=== PATIENT | female | born 1965 | race Caucasian/White ===

== ENCOUNTER 2016-04-29 11:14 | Inpatient (IN) | payer SELFPAY ==
[~2016-04-29] VITALS: Ht 154.9 cm; Wt 48.7 kg
[2016-04-29] VITALS (8 sets, daily range): BP systolic 134–154; BP diastolic 67–83; PULSE 82–105; RESP 12–20; TEMP 97.2–98.9; O2SAT 95–100
[~2016-04-29 11:14] MED LIST: LORA-392 PO
--- NOTE | 2016-04-29 11:52 | PD ---
HPI Chief Complaint: OD/ Ingestion Time Seen by Provider: 11:51 Travel History International Travel<30 days: No Contact w/Intl Traveler<30days: No Traveled to known affect area: No History of Present Illness HPI 50-year-old female coming in via ambulance with a Pulido act for reported overdose. There is reports the patient states she took 12 acetaminophen wanting not to wake up. She comes from a house that was extremely dirty with multiple stray cats and feces throughout, and all the food in the refrigerator had maggots present. Patient is appropriate and arousable, and complaining of left upper back and chronic back pain, but denies fever, nausea, vomiting, or diarrhea. When I asked the patient what she took as an overdose she states Benadryl and baby aspirin. Vital signs are stable upon arrival. Patient is known to be allergic to Bactrim, sulfa, and trimethoprim. PFSH Past Medical History Anxiety: Yes Depression: Yes Gastrointestinal Disorders: Yes (COLONOSCOPIES: LAST ONE 2006, POLYPECTOMY) Hiatal Hernia: Yes Herniated Disk: Yes (NECK) Kidney Stones: Yes Respiratory: Yes (BRONCHITIS) Pneumonia: Yes Ulcer: Yes (GASTRIC) ?: Unknown Menopausal: Yes : 1 Miscarriage: 1 Past Surgical History Other Surgery: Yes (BREAST AUGMENTATION) Social History Alcohol Use: No Tobacco Use: Yes (04/26 PPD) Substance Use: No Allergies-Medications (Allergen,Severity, Reaction): Coded Allergies: Sulfa (Verified Allergy, Severe, HIGH FEVER AND RASH, 04/29/16) Bactrim (Verified Allergy, Intermediate, RASH/FEVER, 04/29/16) Trimethoprim (Verified Allergy, Unknown, 04/29/16) Reported Meds & Prescriptions Reported Meds & Active Scripts Active Reported Ativan (Lorazepam) 0.5 Mg Tab 0.5 Mg PO Q12HR PRN Review of Systems ROS Limitations: Clinical Condition General / Constitutional: No: Fever Eyes: No: Visual changes HENT: No: Headaches Cardiovascular: No: Chest Pain or Discomfort Respiratory: No: Shortness of Breath Gastrointestinal: No: Abdominal Pain Genitourinary: No: Dysuria Musculoskeletal: No: Pain Skin: No Rash Neurologic: No: Weakness Psychiatric: No: Depression Endocrine: No: Polydipsia Hematologic/Lymphatic: No: Easy Bruising Physical Exam Exam Limitations: Clinical Condition Narrative GENERAL: Patient is oriented and currently appropriate. She appears disheveled and somewhat cachectic. She smells of Cat Urine. SKIN: Warm and dry. No obvious signs of trauma. HEAD: Atraumatic. Normocephalic. EYES: Pupils equal and round. No scleral icterus. No injection or drainage. ENT: No nasal bleeding or discharge. Mucous membranes pink and dry. Pharynx appears normal. NECK: Trachea midline. Neck is supple. CARDIOVASCULAR: Tachycardic rate and normal rhythm. RESPIRATORY: No accessory muscle use. Clear to auscultation. Patient has noticeable wet cough. Breath sounds equal bilaterally. GASTROINTESTINAL: Abdomen soft, non-tender, nondistended. Hepatic and splenic margins not palpable. MUSCULOSKELETAL: Extremities without clubbing, cyanosis, or edema. No obvious deformities. NEUROLOGICAL: Awake and alert. No obvious cranial nerve deficits. Motor grossly within normal limits. Five out of 5 muscle strength in the arms and legs. Normal speech. PSYCHIATRIC: Appropriate mood and affect; insight and judgment normal. Data Data Last Documented VS Vital Signs Date Time Temp Pulse Resp B/P Pulse Ox O2 Delivery O2 Flow Rate FiO2 04/29/16 14:33 95 14 134/79 97 Room Air 04/29/16 11:26 97.2 Orders Electrocardiogram (04/29/16 11:35) Complete Blood Count With Diff (04/29/16 11:35) Comprehensive Metabolic Panel (04/29/16 11:35) Drug Screen, Random Urine (04/29/16 11:35) Alcohol (Ethanol) (04/29/16 11:35) Tylenol (Acetaminophen) (04/29/16 11:35) Psych Screen (04/29/16 11:35) Oximetry (04/29/16 12:15) Ecg Monitoring (04/29/16 12:15) Cath For Specimen (04/29/16 12:15) Salicylates (Aspirin) (04/29/16 12:15) Sodium Chlor 0.9% 1000 Ml Inj (Ns 1000 M (04/29/16 12:17) Osmolality,Serum (04/29/16 12:18) Osmolality, Urine (04/29/16 12:18) Urinalysis - C+S If Indicated (04/29/16 12:18) Ondansetron Inj (Zofran Inj) (04/29/16 12:30) Lactic Acid Sepsis Protocol (04/29/16 12:51) Blood Culture (04/29/16 12:51) Chest, Single Ap (04/29/16 12:51) Piperacil-Tazo 4.5 Gm Premix (Zosyn 4.5 (04/29/16 12:51) Azithromycin Inj (Zithromax Inj) (04/29/16 13:15) Admit Order (Ed Use Only) (04/29/16 14:37) Labs Laboratory Tests Test 04/29/16 04/29/16 04/29/16 04/29/16 11:40 12:15 12:30 12:55 White Blood Count 20.4 TH/MM3 Red Blood Count 4.31 MIL/MM3 Hemoglobin 13.0 GM/DL Hematocrit 39.3 % Mean Corpuscular Volume 91.3 FL Mean Corpuscular Hemoglobin 30.2 PG Mean Corpuscular Hemoglobin 33.1 % Concent Red Cell Distribution Width 13.8 % Platelet Count 269 TH/MM3 Mean Platelet Volume 8.5 FL Neutrophils (%) (Auto) 90.3 % Lymphocytes (%) (Auto) 5.2 % Monocytes (%) (Auto) 4.1 % Eosinophils (%) (Auto) 0.0 % Basophils (%) (Auto) 0.4 % Neutrophils # (Auto) 18.4 TH/MM3 Lymphocytes # (Auto) 1.1 TH/MM3 Monocytes # (Auto) 0.8 TH/MM3 Eosinophils # (Auto) 0.0 TH/MM3 Basophils # (Auto) 0.1 TH/MM3 CBC Comment DIFF FINAL Differential Comment Sodium Level 143 MEQ/L Potassium Level 4.1 MEQ/L Chloride Level 108 MEQ/L Carbon Dioxide Level 27.9 MEQ/L Anion Gap 7 MEQ/L Blood Urea Nitrogen 7 MG/DL Creatinine 0.44 MG/DL Estimat Glomerular Filtration 152 ML/MIN Rate Random Glucose 93 MG/DL Calcium Level 8.5 MG/DL Total Bilirubin 0.5 MG/DL Aspartate Amino Transf 29 U/L (AST/SGOT) Alanine Aminotransferase 21 U/L (ALT/SGPT) Alkaline Phosphatase 115 U/L Total Protein 7.0 GM/DL Albumin 3.6 GM/DL Acetaminophen Level LESS THAN 2.0 MCG/ML Ethyl Alcohol Level LESS THAN 3 MG/DL Urine Color YELLOW Urine Turbidity HAZY Urine pH 7.5 Urine Specific [place] 1.011 Urine Protein NEG mg/dL Urine Glucose (UA) NEG mg/dL Urine Ketones NEG mg/dL Urine Occult Blood MOD Urine Nitrite NEG Urine Bilirubin NEG Urine Urobilinogen LESS THAN 2.0 MG/DL Urine Leukocyte Esterase MOD Urine RBC 10 /hpf Urine WBC 4 /hpf Urine Squamous Epithelial 7 /hpf Cells Microscopic Urinalysis Comment CATH-CULT NOT IND Urine Osmolality 471 MOSM/KG Urine Opiates Screen NEG Urine Barbiturates Screen NEG Urine Amphetamines Screen NEG Urine Benzodiazepines Screen NEG Urine Cocaine Screen NEG Urine Cannabinoids Screen NEG Serum Osmolality 301 MOSM/KG Lactic Acid Level 0.8 mmol/L MDM Medical Decision Making Medical Screen Exam Complete: Yes Emergency Medical Condition: Yes Differential Diagnosis Decreased mental status. Suicidal ideation. Possible overdose. Possible sepsis. Dehydration. Narrative Course Patient is felt to be medically stable at time of arrival. Labs ordered including CBC, CMP, acetaminophen level, drug screen, alcohol level , and salicylate level. Urinalysis is ordered. Patient is found to have an elevated white count of 20.4 with a right shift. Preliminary drug screen is negative for elevated acetaminophen, or salicylates. Patient is felt to be possibly septic. With her tachycardia and apparent dehydration and white count. Additional labs ordered including what cultures 2 and lactic acid. Chest x-ray is added, as patient has deep wet cough. Patient is given bolus of normal saline 1000 mL IV. Patient is given a dose of Zosyn 4.25 mg IV empirically for possible sepsis. Chest x-ray shows a right middle lobe pneumonia. Patient is given azithromycin 500 mg IV as well. Patient will be admitted for medical stabilization prior to psychiatric evaluation. 1330 hrs. call was placed to the hospitalist for admission. Diagnosis Primary Impression: Pneumonia Qualified Code: J18.1 - Pneumonia of right middle lobe due to infectious organism Additional Impression: Suicidal ideations Admitting Information Admitting Physician Requests: Admit Condition: Stable Ozzy Stein Apr 29, 2016 11:51
[2016-04-29 12:05] LABS: AUTOMATED NEUTROPHIL # 18.4 TH/MM3 (1.8-7.7); BASOPHIL # 0.1 TH/MM3 (0-0.2); BASOPHIL % 0.4 % (0.0-2.0); HEMATOCRIT 39.3 % (35.0-46.0); HEMO FLAGS DIFF FINAL; LYMPH % 5.2 % (9.0-44.0); LYMPHOCYTE # 1.1 TH/MM3 (1.0-4.8); MEAN CELL VOLUME 91.3 FL (80.0-100.0); MEAN CORPUSCULAR HEMOGLOBIN 30.2 PG (27.0-34.0); MEAN CORPUSCULAR HGB CONC 33.1 % (32.0-36.0); MONO % 4.1 % (0.0-8.0); NEUT % 90.3 % (16.0-70.0); PLATELET COUNT 269 TH/MM3 (150-450); RED BLOOD COUNT 4.31 MIL/MM3 (4.00-5.30); RED CELL DISTRIBUTION WIDTH 13.8 % (11.6-17.2); WHITE BLOOD COUNT 20.4 TH/MM3 (4.0-11.0)
[2016-04-29] MEDS ORDERED: SODIUM CHLOR 0.9% 1000 ML INJ 1,000 ML IV SCH (12:17)
[2016-04-29 12:28] LABS: ALKALINE PHOSPHATASE 115 U/L (45-117); TOTAL BILIRUBIN ADULT 0.5 MG/DL (0.2-1.0)
[2016-04-29 12:30] LABS: ACETAMINOPHEN LESS THAN 2.0 MCG/ML (10.0-30.0); ALT (GPT) 21 U/L (10-53); ANION GAP 7 MEQ/L (5-15); AST (GOT) 29 U/L (15-37); BICARBONATE 27.9 MEQ/L (21.0-32.0); BLOOD UREA NITROGEN 7 MG/DL (7-18); CHLORIDE 108 MEQ/L (98-107); GLOMERULAR FILTRATION RATE 152 ML/MIN (>89); SODIUM (NA) 143 MEQ/L (136-145)
[2016-04-29] MEDS ORDERED: ONDANSETRON HCL 4 MG/2 ML VIAL IVP ONE (12:30)
[2016-04-29 12:32] LABS: POTASSIUM 4.1 MEQ/L (3.5-5.1)
[2016-04-29 12:41] LABS: AMPHETAMINE, URINE NEG (NEG); BARBITURATES, URINE NEG (NEG); COCAINE, URINE NEG (NEG)
[2016-04-29] MEDS ORDERED: PIPERACIL-TAZO 4.5 GM PREMIX 100 ML IV STA (12:51)
[2016-04-29] MEDS ORDERED: AZITHROMYCIN INJ 500 MG in SODIUM CHLOR 0.9% 250 ML INJ 250 ML IV ONE (13:15)
--- NOTE | 2016-04-29 13:21 | RADRPT ---
EXAM DATE/TIME: 04/29/2016 13:04 [facility] COMPARISON: No previous studies available for comparison. INDICATIONS : Fever. MEDICAL HISTORY : None. SURGICAL HISTORY : None. ENCOUNTER: Initial ACUITY: 1 day PAIN SCORE: Non-responsive. LOCATION: Bilateral chest FINDINGS: A single view of the chest demonstrates a right infrahilar density. Left lung clear. The cardiomedias tinal contours are unremarkable. Osseous structures are intact. CONCLUSION: Right infrahilar infiltrate. Recommend treatment and followup to resolution. Mike Ponce MD on April 29, 2016 at 13:18 Board Certified Radiologist. This report was verified electronically.
[2016-04-29 13:28] LABS: BLOOD, URINE MOD (NEG); COMMENT (UR) CATH-CULT NOT IND; CULTURE IF INDICATED CATH CULTURE NOT IND; GLUCOSE,URINE NEG (NEG); KETONE, URINE NEG (NEG); NITRITE,URINE NEG (NEG); PH, URINE 7.5 (5.0-8.5); SQUAMOUS EPITHELIAL CELL URINE 7 /hpf (0-5); URINE COLOR YELLOW (YELLW/STRAW)
[2016-04-29] MEDS ORDERED: LORA-392 PO (14:37)
[2016-04-29] MEDS ORDERED: SODIUM CHLORIDE 0.9% FLUSH 5 ML FLUSH FLUSH PRN (19:00)
[2016-04-29] MEDS ORDERED: NALOXONE HCL 0.4 MG/ML AMP IV PRN (19:00)
--- NOTE | 2016-04-29 19:06 | HHI.HP ---
HPI Service [facility] Primary Care Physician Unknown Admission Diagnosis Pneumonia/Dehydration/Pulido Act Diagnoses: Chief Complaint: Drug overdose Travel History International Travel<30 Days: No Contact w/Intl Traveler <30 Da: No Traveled to Known Affected Are: No Sepsis Criteria SIRS Criteria (2 or more): Heart rate over 90, WBC > 18936, < 4000 or > 10% bands Sepsis Criteria (SIRS+source): Infect source susp/known Criteria Outcome: Meets sepsis criteria History of Present Illness This is a 50-year-old female brought in by EMS under a police Pulido act for a reported overdose. Patient states she took 12 acetaminophen wanting not to wake up. She later informed the nursing staff that she took Benadryl and aspirin. To me she claimed she took 6 Ativan and 3 Phenergan. She is not a reliable historian. Urine drug screen is negative pending salicylate level. She has been depressed since her mother several months ago. She comes from a house that was extremely dirty with multiple stray cats and feces throughout, and all the food in the refrigerator had maggots present. Patient is appropriate and complaining of chronic intermittent left upper back and back pain, but denies fever, nausea, vomiting, or diarrhea. When informed about the abnormal chest x-ray showing a possible pneumonia. She reports she has been having dry cough, eye puffiness and warm sensation for the past 2 days. She received IV Zithromax and cefepime in the emergency department. At this time, she does not contract for safety. Pluido act will be continued and a sitter will be requested Review of Systems Constitutional: DENIES: Diaphoretic episodes, Fatigue, Fever, Weight gain, Weight loss, Chills, Dizziness, Change in appetite, Night Sweats Endocrine: DENIES: Heat/cold intolerance, Polydipsia, Polyuria, Polyphagia Eyes: DENIES: Blurred vision, Diplopia, Vision loss, Photosensitivity Ears, nose, mouth, throat: DENIES: Tinnitus, Vertigo, Throat pain, Hoarseness, Epistaxis, Odynophagia Respiratory: COMPLAINS OF: Cough, DENIES: Wheezing, Hemoptysis, Sputum production, Shortness of breath Cardiovascular: DENIES: Chest pain, Palpitations, Syncope, Dyspnea on Exertion , PND, Lower Extremity Edema, Orthopnea, Claudication Gastrointestinal: DENIES: Abdominal pain, Black stools, Bloody stools, Constipation, Diarrhea, Nausea, Vomiting, Difficulty Swallowing, Anorexia Genitourinary: DENIES: Urinary frequency, Urinary incontinence, Urgency, Hematuria, Dysuria, Nocturia, Vaginal discharge Musculoskeletal: COMPLAINS OF: Muscle aches, Stiffness, Back pain, Neck pain Integumentary: DENIES: Rash Neurologic: DENIES: Headache, Localized weakness, Seizures, Tremor, Poor Balance Psychiatric: COMPLAINS OF: Anxiety, Depression, Suicidal Ideation, DENIES: Confusion, Hallucinations, Agitation, Homicidal Ideation, Delusions Past Family Social History Past Medical History Anxiety and depression, chronic neck and back pain with history of herniated disc in the cervical area, bronchitis, pneumonia, gastric ulcer Past Surgical History Breast augmentation and tendon release Reported Medications Ativan. Unable to afford Lexapro Allergies: Coded Allergies: Sulfa (Verified Allergy, Severe, HIGH FEVER AND RASH, 04/29/16) Bactrim (Verified Allergy, Intermediate, RASH/FEVER, 04/29/16) Trimethoprim (Verified Allergy, Unknown, 04/29/16) Family History Melanoma, coronary artery disease Social History Does not drink or use illicit drugs. She smokes half a pack per day Physical Exam Vital Signs Vital Signs Date Time Temp Pulse Resp B/P Pulse Ox O2 Delivery O2 Flow Rate FiO2 04/29/16 18:44 90 20 141/67 95 Room Air 04/29/16 16:35 98.9 105 20 143/83 100 Room Air 04/29/16 15:29 101 16 144/81 97 Room Air 04/29/16 14:33 95 14 134/79 97 Room Air 04/29/16 11:26 97.2 102 12 135/72 96 Physical Exam GENERAL: This is a well-nourished, asthenic, in no apparent distress. SKIN: Bruises bilateral forearms and abrasion left elbow, abrasion mid back HEAD: Atraumatic. Normocephalic. No temporal or scalp tenderness. EYES: Pupils equal round and reactive. Extraocular motions intact. No scleral icterus. No injection or drainage. ENT: Nose without bleeding, purulent drainage or septal hematoma. Throat without erythema, tonsillar hypertrophy or exudate. Uvula midline. Airway patent. NECK: Trachea midline. No JVD or lymphadenopathy. Supple, nontender, no meningeal signs. CARDIOVASCULAR: Regular rate and rhythm without murmurs, gallops, or rubs. RESPIRATORY: Clear to auscultation. Decreased breath sounds right base. No wheezes, rales, or rhonchi. GASTROINTESTINAL: Abdomen soft, non-tender, nondistended. No guarding. MUSCULOSKELETAL: Extremities without clubbing, cyanosis, or edema. No joint tenderness, effusion, or edema noted. No calf tenderness. Negative Homans sign bilaterally. NEUROLOGICAL: Awake and alert. Cranial nerves II through XII intact. Motor and sensory grossly within normal limits. Five out of 5 muscle strength in all muscle groups. Normal speech. Laboratory Laboratory Tests Test 04/29/16 04/29/16 04/29/16 04/29/16 11:40 12:15 12:30 12:55 White Blood Count 20.4 Red Blood Count 4.31 Hemoglobin 13.0 Hematocrit 39.3 Mean Corpuscular Volume 91.3 Mean Corpuscular Hemoglobin 30.2 Mean Corpuscular Hemoglobin 33.1 Concent Red Cell Distribution Width 13.8 Platelet Count 269 Mean Platelet Volume 8.5 Neutrophils (%) (Auto) 90.3 Lymphocytes (%) (Auto) 5.2 Monocytes (%) (Auto) 4.1 Eosinophils (%) (Auto) 0.0 Basophils (%) (Auto) 0.4 Neutrophils # (Auto) 18.4 Lymphocytes # (Auto) 1.1 Monocytes # (Auto) 0.8 Eosinophils # (Auto) 0.0 Basophils # (Auto) 0.1 CBC Comment DIFF FINAL Differential Comment Sodium Level 143 Potassium Level 4.1 Chloride Level 108 Carbon Dioxide Level 27.9 Anion Gap 7 Blood Urea Nitrogen 7 Creatinine 0.44 Estimat Glomerular Filtration 152 Rate Random Glucose 93 Calcium Level 8.5 Total Bilirubin 0.5 Aspartate Amino Transf 29 (AST/SGOT) Alanine Aminotransferase 21 (ALT/SGPT) Alkaline Phosphatase 115 Total Protein 7.0 Albumin 3.6 Acetaminophen Level LESS THAN 2.0 Ethyl Alcohol Level LESS THAN 3 Urine Color YELLOW Urine Turbidity HAZY Urine pH 7.5 Urine Specific [place] 1.011 Urine Protein NEG Urine Glucose (UA) NEG Urine Ketones NEG Urine Occult Blood MOD Urine Nitrite NEG Urine Bilirubin NEG Urine Urobilinogen LESS THAN 2.0 Urine Leukocyte Esterase MOD Urine RBC 10 Urine WBC 4 Urine Squamous Epithelial 7 Cells Microscopic Urinalysis Comment CATH-CULT NOT IND Urine Osmolality 471 Urine Opiates Screen NEG Urine Barbiturates Screen NEG Urine Amphetamines Screen NEG Urine Benzodiazepines Screen NEG Urine Cocaine Screen NEG Urine Cannabinoids Screen NEG Serum Osmolality 301 Lactic Acid Level 0.8 Date/Time Procedure Status Source Growth 04/29/16 12:55 Aerobic Blood Culture Received Blood Peripheral Pending 04/29/16 12:55 Anaerobic Blood Culture Received Blood Peripheral Pending Result Diagram: 04/29/16 1140 04/29/16 1140 Imaging EKG tracing interpreted by me and sinus tachycardia Chest x-ray image interpreted by me with right infrahilar infiltrate Last Impressions Chest X-Ray 04/29/16 1251 Signed Impressions: Service Date/Time: , April 29, 2016 13:04 - CONCLUSION: Right infrahilar infiltrate. Recommend treatment and followup to resolution. Mike Ponce MD Assessment and Plan Problem List: (1) Pneumonia ICD Code: J18.9 Status: Acute (2) Suicidal ideations ICD Code: R45.851 Status: Acute Assessment and Plan This is a 50-year-old female brought in by EMS under a police Pulido act for a reported overdose. Patient states she took 12 acetaminophen wanting not to wake up. She later informed the nursing staff that she took Benadryl and aspirin. To me she claimed she took 6 Ativan and 3 Phenergan. She is not a reliable historian. Urine drug screen is negative pending salicylate level. She has been depressed since her mother several months ago. She comes from a house that was extremely dirty with multiple stray cats and feces throughout, and all the food in the refrigerator had maggots present. Patient is appropriate and complaining of chronic intermittent left upper back and back pain, but denies fever, nausea, vomiting, or diarrhea. When informed about the abnormal chest x-ray showing a possible pneumonia. She reports she has been having dry cough, eye puffiness and warm sensation for the past 2 days. Sepsis secondary to pneumonia. Continue Zithromax and add IV Rocephin. Obtain sputum culture, urinary Legionella and pneumococcal antigen. Follow-up blood cultures. Repeat CBC in the morning Reported drug overdose history of depression. At this time, she does not contract for safety. Pulido act will be continued and a sitter will be requested. Psychiatry consult patient has been requested Chronic neck and back pain with history of herniated disc in the cervical area, heat pads and NSAIDs. Physical therapy evaluation Wound care Case management consult Discussed Condition With Patient Physician Certification 2 Midnight Certification Type: Admission for Inpatient Services Order for Inpatient Services The services are ordered in accordance with Medicare regulations or non- Medicare payer requirements, as applicable. In the case of services not specified as inpatient-only, they are appropriately provided as inpatient services in accordance with the 2-midnight benchmark. Estimated LOS (days): 2 days is the estimated time the patient will need to remain in the hospital, assuming treatment plan goals are met and no additional complications. Post-Hospital Plan: Home Problem Qualifiers (1) Pneumonia: Qualified Code: J18.1 - Pneumonia of right middle lobe due to infectious organism Nicko Denis MD Apr 29, 2016 19:05
[2016-04-29] MEDS ORDERED: ACETAMINOPHEN 325 MG TAB PO PRN ×2 (21:00)
[2016-04-29] MEDS ORDERED: BISACODYL 10 MG SUPP PR PRN (21:00)
[2016-04-29] MEDS ORDERED: LORazepam 0.5 MG TAB PO PRN (21:00)
[2016-04-29] MEDS ORDERED: MAGNESIUM HYDROXIDE SUSP 30 ML CUP PO PRN (21:00)
[2016-04-29] MEDS ORDERED: traMADol HCL 50 MG TAB PO PRN (21:00)
[2016-04-29] MEDS ORDERED: ONDANSETRON HCL 4 MG/2 ML VIAL IVP PRN (21:00)
[2016-04-29] MEDS ORDERED: SENNOSIDES 8.6 MG TAB PO PRN (21:00)
[2016-04-29] MEDS: traMADol HCL 50 MG TAB PO PRN (21:05)
[2016-04-29] MEDS: DOCUSATE SODIUM 100 MG CAP PO SCH (21:05)
[2016-04-29] MEDS: METHOCARBAMOL 500 MG TAB PO SCH (21:06)
[2016-04-29] MEDS: SODIUM CHLOR 0.9% 1000 ML INJ 1,000 ML IV SCH (21:07)
[2016-04-29] MEDS: cefTRIAXone INJ 1,000 MG in SODIUM CHLORIDE 0.9% INJ 100 ML IV SCH (21:07)
[2016-04-29] MEDS: SODIUM CHLORIDE 0.9% FLUSH 5 ML FLUSH FLUSH SCH (21:07)
[2016-04-30] VITALS (7 sets, daily range): BP systolic 120–135; BP diastolic 56–79; PULSE 70–93; RESP 18–21; TEMP 98–99; O2SAT 93–99
[2016-04-30] MEDS: METHOCARBAMOL 500 MG TAB PO SCH ×3 (05:15→21:14)
[2016-04-30] MEDS: traMADol HCL 50 MG TAB PO PRN ×3 (05:16→18:11)
[2016-04-30] MEDS: SODIUM CHLORIDE 0.9% FLUSH 5 ML FLUSH FLUSH SCH ×2 (09:00→21:14)
--- NOTE | 2016-04-30 09:22 | PD.CONS ---
Provisional Diagnosis Admission Date Apr 29, 2016 at 18:47 [place] I. Major depressive disorder, recurrent, severe without psychotic features, unspecified anxiety [place] II. Deferred [place] III. Acute pneumonia, [place] IV. Poor family and social support [place] V. 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 As per ER note : "Patient states she took 12 acetaminophen wanting not to wake up. She later informed the nursing staff that she took Benadryl and aspirin. To me she claimed she took 6 Ativan and 3 Phenergan. She is not a reliable historian. Urine drug screen is negative pending salicylate level. She has been depressed since her mother several months ago. She comes from a house that was extremely dirty with multiple stray cats and feces throughout, and all the food in the refrigerator had maggots present. Patient is appropriate and complaining of chronic intermittent left upper back and back pain, but denies fever, nausea, vomiting, or diarrhea. When informed about the abnormal chest x-ray showing a possible pneumonia. She reports she has been having dry cough, eye puffiness and warm sensation for the past 2 days. She received IV Zithromax and cefepime in the emergency department. At this time, she does not contract for safety. Pulido act will be continued and a sitter will be requested". Pulido act also added patient was found in her apartment that was extremely disorganized, full of cat and dog faces, and patient wasn't taking good care of herself. Chart was reviewed, case discussed with nurse in charge and ER team, no collateral information available, patient was seen and evaluated in the ER. On psychiatric evaluation patient was found superficially cooperative, very distant , kind of resistant, but redirectable. Patient stated that she took an overdose of Ativan, Phenergan, and Benadryl, unknown amount of pills, "all I found" with the intention to and he stop suffering and leave from a life that is miserable. Patient states that since her mother in January she has no purpose to live, her landlord last week told her that she had to pay her pets out of her apartment and she doesn't even know what to do with them, she has been vegetating every day, with a very poor appetite, not eating properly, sleeping no over 2 hours per night, not taking care of herself, eating about anything anymore, with a strong feeling of emptiness and sadness and thinking about committing suicide daily. Patient says that she is sad that she did not and join her mother. Patient denies anxiety, past or current deondre, perceptual disturbances such as visual and auditory hallucinations. Patient is fully oriented 3, no gross cognitive impairment observed. She has some periods of confusion, and fluctuation of consciousness. Patient denies the use of alcohol and illicit drugs. Review of Systems Constitutional: COMPLAINS OF: Fatigue, Fever, Weight loss Endocrine: DENIES: Abnorml menstrual pattern, Heat/cold intolerance, Polydipsia , Polyuria, Polyphagia Eyes: DENIES: Blurred vision, Diplopia, Eye inflammation, Eye pain, Vision loss , Photosensitivity, Double Vision Respiratory: COMPLAINS OF: Cough, Sputum production Cardiovascular: DENIES: Chest pain, Palpitations, Syncope, Dyspnea on Exertion , PND, Lower Extremity Edema, Orthopnea, Claudication Gastrointestinal: DENIES: Abdominal pain, Black stools, Bloody stools, Constipation, Diarrhea, Nausea, Vomiting, Difficulty Swallowing, Anorexia Musculoskeletal: DENIES: Joint pain, Muscle aches, Stiffness, Joint Swelling, Back pain, Neck pain Integumentary: DENIES: Abnormal pigmentation, Pruritus, Rash, Nail changes, Breast masses, Breast skin changes, Nipple discharge Hematologic/lymphatic: DENIES: Bruising, Lymphadenopathy Neurologic: DENIES: Abnormal gait, Headache, Localized weakness, Paresthesias, Seizures, Speech Problems, Tremor, Poor Balance Psychiatric: COMPLAINS OF: Confusion, Depression, DENIES: Anxiety, Mood changes, Hallucinations, Agitation, Suicidal Ideation, Homicidal Ideation, Delusions Past Family Social History Coded Allergies: Sulfa (Verified Allergy, Severe, HIGH FEVER AND RASH, 04/29/16) Bactrim (Verified Allergy, Intermediate, RASH/FEVER, 04/29/16) Trimethoprim (Verified Allergy, Unknown, 04/29/16) Reported Medications Lorazepam (Ativan)0.5 Mg Tab0.5 Mg PO Q12HR PRN (ANXIETY AND/OR AGITATION) Ref 0 04/29/16 Current Medications Medications (Trade) Dose Ordered Sig/Shahram Route Start Time Stop Time Status Last Admin Methocarbamol 500 mg 500 mg Q8HR PO 04/29/16 22:00 04/30/16 05:15 (NS 1000 ml Inj) 1,000 ml @ 50 mls/hr Q20H IV 04/29/16 21:00 04/29/16 21:07 (NS Flush) 2 ml UNSCH PRN FLUSH 04/29/16 19:00 (NS Flush) 2 ml BID FLUSH 04/29/16 21:00 04/29/16 21:07 (Tylenol) 650 mg Q4H PRN PO 04/29/16 21:00 (Zofran Inj) 4 mg Q6H PRN IVP 04/29/16 21:00 (Dulcolax Supp) 10 mg DAILY PRN TX 04/29/16 21:00 (Colace) 100 mg Q12H PO 04/29/16 21:00 04/29/16 21:05 (Milk Of Magnesia Liq) 30 ml Q12H PRN PO 04/29/16 21:00 (Senokot) 17.2 mg Q12H PRN PO 04/29/16 21:00 (Tylenol) 650 mg Q6H PRN PO 04/29/16 21:00 (Narcan Inj) 0.4 mg UNSCH PRN IV 04/29/16 19:00 (Ultram) 50 mg Q4H PRN PO 04/29/16 21:00 (Ultram) 100 mg Q4H PRN PO 04/29/16 21:00 04/30/16 05:16 Lorazepam 0.5 mg 0.5 mg Q6H PRN PO 04/29/16 21:00 Ceftriaxone Sodium 1000 mg/ Sodium Chloride 100 ml @ 200 mls/hr Q24H IV 04/29/16 21:00 04/29/16 21:07 (Zithromax Inj/ NS 250 ml Inj) 250 ml @ 250 mls/hr Q24H IV 04/30/16 09:00 Family History She denies Social History Patient was born and raised in [place], she was raised by 2 parents, she is single, employed as a bank cashier and [employer], she has been living in [place] for 40 years, she lives in [place] alone in an apartment, she has no kids, her highest level of education is high school. Physical Exam Vital Signs Vital Signs Date Time Temp Pulse Resp B/P Pulse Ox O2 Delivery O2 Flow Rate FiO2 04/30/16 07:56 99.0 88 18 135/67 93 04/29/16 19:38 Room Air Mental Status Examination Appearance , skinny woman, older than his stated age, poor hygiene, she seems to be chronically/acutely ill, very fragile, superficially cooperative, confused at times Speech: Hesitant, Slow Orientation: Person, Place, Time, Situation Thought Process: Logical, Loose Association Thought Content: Unremarkable Hallucination Type: None Suicidal Ideation: Yes Previous Suicide Attempts: Yes Homicidal Ideation: No Previous Homicide Attempts: No Judgement: Poor Affect: Sad, Oppositional Mood: Sad Motor Activity: Normal gait Assessment & Plan Problem List: (1) Major depressive disorder, recurrent Assessment & Plan: The patient is a 50-year-old woman, single, domiciled alone, poor family and social support, employed as a bank cashier , psychiatric history of anxiety and depression, no psychiatric hospitalizations , 1 previous suicide attempt by overdose, no outpatient psychiatric care at this moment, no significant medical history, who was brought in by EMS under a police Pulido act for a reported overdose with the intention of dying. On psychiatric evaluation today the patient presents just superficially cooperative, but irritable, very fragile, at the beginning oppositional, but then redirectable and becoming more open. She endorses about 2 months of severe depression, since her mother , consisting and hopelessness, helplessness, poor sleep, weight loss, not taking care of herself, anhedonia, frequent suicidal thoughts, decreased energy and level of functionality. Patient has recently attempted to commit suicide by overdosing with multiple pills with the intention to commit suicide, he continues to be actively suicidal and regrets to be alive, she doesn't have any reportable plan at this moment. Patient is also confused, with periods of fluctuation of consciousness and disorganization. As per Pulido act she was found disoriented, no making any sense, living in infrahuman conditions. Is clear that the patient is a danger to herself, she is severely depressed, acutely suicidal and needs psychiatric admission for hospitalization. Is also highly probable the patient is delirium due to underlying pneumonia, but psychotic features of her depression have to also be explored. Patient should continue in one-to-one observation with sitter for safety. Will start Remeron 15 milligrams to help the patient with sleep, depression, increased appetite Also would start Seroquel 25 mg twice a day to help with behavior dysregulation , delirium Extensive support, psycho education motivation provided Collateral information is is still needed in order to complete the psychiatric assessment Patient will be a good candidate for the psych/med unit since she is going to need IV fluids and antibiotics therapy. Consul appreciated. ICD Code: F33.9 Assessment & Plan Estimated LOS: days Problem Qualifiers (1) Major depressive disorder, recurrent: Bashir Arshad MD Apr 30, 2016 09:22
[2016-04-30] MEDS: DOCUSATE SODIUM 100 MG CAP PO SCH ×2 (09:30→21:14)
[2016-04-30] MEDS: AZITHROMYCIN INJ 500 MG in SODIUM CHLOR 0.9% 250 ML INJ 250 ML IV SCH (09:30)
[2016-04-30 09:56] LABS: BICARBONATE 27.1 MEQ/L (21.0-32.0); MAGNESIUM 1.9 MG/DL (1.5-2.5)
[2016-04-30 10:00] LABS: POTASSIUM 2.9 MEQ/L (3.5-5.1)
--- NOTE | 2016-04-30 11:02 | HHI.PR ---
Subjective Remarks Follow-up for overdose and pneumonia. The patient continues to complain of neck pain today, improved after starting a muscle relaxer. She denies any depression or continue suicidal intent, but states she is tired. Objective Vitals Vital Signs Date Time Temp Pulse Resp B/P Pulse Ox O2 Delivery O2 Flow Rate FiO2 04/30/16 07:56 99.0 88 18 135/67 93 04/30/16 06:25 16 04/30/16 04:45 98.0 84 21 121/66 99 04/30/16 00:27 98.0 93 18 120/56 98 04/29/16 23:54 84 04/29/16 20:17 98.0 82 18 154/76 95 04/29/16 19:38 89 16 138/72 98 Room Air 04/29/16 18:44 90 20 141/67 95 Room Air 04/29/16 16:35 98.9 105 20 143/83 100 Room Air 04/29/16 15:29 101 16 144/81 97 Room Air 04/29/16 14:33 95 14 134/79 97 Room Air 04/29/16 11:26 97.2 102 12 135/72 96 I/O 04/29/16 04/29/16 04/29/16 04/30/16 04/30/16 04/30/16 07:00 15:00 23:00 07:00 15:00 23:00 Intake Total 240 ml Balance 240 ml Intake Oral 240 ml # Voids 3 Result Diagram: 04/29/16 1140 04/30/16 0815 Imaging Last Impressions Chest X-Ray 04/29/16 1251 Signed Impressions: Service Date/Time: April 13:04 - CONCLUSION: Right infrahilar infiltrate. Recommend treatment and followup to resolution. Mike Ponce MD Objective Remarks GENERAL: Well-developed well-nourished. In no acute distress. SKIN: Warm and dry. No lesions noted. HEENT: Normocephalic. Pupils equal and round. Mucous membranes pink and moist. CARDIOVASCULAR: Regular rate and rhythm. No murmur appreciated. RESPIRATORY: No accessory muscle use. Clear to auscultation. Slightly decreased breath sounds on the right. GASTROINTESTINAL: Abdomen soft, non-tender, nondistended. Bowel sounds x4. MUSCULOSKELETAL: No obvious deformities. No clubbing or cyanosis. No edema. NEUROLOGICAL: Awake and alert. No focal neurological deficits. Moves upper and lower extremities spontaneously. Normal speech. PSYCHIATRIC: Slightly depressed mood and guarded affect; insight and judgment normal. Denies SI. A/P Problem List: (1) Pneumonia ICD Code: J18.9 Status: Acute (2) Suicidal ideations ICD Code: R45.851 Status: Acute Assessment and Plan This is a 50-year-old female brought in by EMS under a police Pulido act for a reported overdose. Patient states she took 12 acetaminophen wanting not to wake up. She later informed the nursing staff that she took Benadryl and aspirin. To me she claimed she took 6 Ativan and 3 Phenergan. She is not a reliable historian. Urine drug screen is negative pending salicylate level. She has been depressed since her mother several months ago. She comes from a house that was extremely dirty with multiple stray cats and feces throughout, and all the food in the refrigerator had maggots present. Patient is appropriate and complaining of chronic intermittent left upper back and back pain, but denies fever, nausea, vomiting, or diarrhea. When informed about the abnormal chest x-ray showing a possible pneumonia. She reports she has been having dry cough, eye puffiness and warm sensation for the past 2 days. Sepsis secondary to pneumonia: Elevated heart rate and WBC count. Tmax 99.0. Continue Zithromax and IV Rocephin. Obtain sputum culture. Urinary Legionella and pneumococcal antigens negative. Follow-up blood cultures growing coag- negative in 1 out of 4 bottles. Repeat CBC pending. IVF. Reported drug overdose history of depression: Psychiatry consulted, recommends inpatient psychiatry. Started on Zyprexa and Remeron. Continue under Pulido act. Continue sitter. Chronic neck and back pain with history of herniated disc in the cervical area: heat pads, muscle and tramadol as needed. Physical therapy evaluation. Hypokalemia: Potassium 2.9. Replace orally. Magnesium within normal limits. DVT prophylaxis: SCDs Written by Dennis Lowe, acting as scribe for Dr. Denis on 04/30/16 at 11:02. The documentation accurately reflects the work performed [id number] by me on at 1102 Discharge Planning Follow-up repeat CBC and PT recommendations. Possible discharge to med psych unit tomorrow a.m. pending final results of blood culture Problem Qualifiers (1) Pneumonia: Qualified Code: J18.1 - Pneumonia of right middle lobe due to infectious organism Dennis Lowe Apr 30, 2016 11:02 Nicko Denis MD Apr 30, 2016 16:00
[2016-04-30] MEDS ORDERED: POTASSIUM CHLORIDE 20 MEQ CONTROLLED RELEASE TAB PO ONE (11:30)
[2016-04-30 12:19] LABS: AUTOMATED NEUTROPHIL # 7.3 TH/MM3 (1.8-7.7); BASOPHIL # 0.1 TH/MM3 (0-0.2); BASOPHIL % 0.6 % (0.0-2.0); EOSINOPHIL % 0.5 % (0.0-4.0); HEMATOCRIT 38.1 % (35.0-46.0); HEMO FLAGS DIFF FINAL; LYMPH % 18.1 % (9.0-44.0); LYMPHOCYTE # 1.8 TH/MM3 (1.0-4.8); MEAN CELL VOLUME 92.1 FL (80.0-100.0); MEAN CORPUSCULAR HEMOGLOBIN 30.8 PG (27.0-34.0); MEAN CORPUSCULAR HGB CONC 33.5 % (32.0-36.0); MONO % 5.7 % (0.0-8.0); NEUT % 75.1 % (16.0-70.0); PLATELET COUNT 250 TH/MM3 (150-450); RED BLOOD COUNT 4.14 MIL/MM3 (4.00-5.30); RED CELL DISTRIBUTION WIDTH 13.8 % (11.6-17.2); WHITE BLOOD COUNT 9.8 TH/MM3 (4.0-11.0)
--- NOTE | 2016-04-30 14:40 | EKG ---
Date Performed: 04/29/2016 Time Performed: 12:05:26 PTAGE: 50 years EKG: SINUS TACHYCARDIA MINIMAL ST DEPRESSION ABNORMAL RHYTHM ECG PREVIOUS TRACING : 05/27/1999 21.06 Since previous tracing, no significant change noted DOCTOR: Mishel Wynn Interpretating Date/Time 04/30/2016 14:35:59
[2016-04-30] MEDS: SODIUM CHLOR 0.9% 1000 ML INJ 1,000 ML IV SCH (16:19)
[2016-04-30] MEDS: cefTRIAXone INJ 1,000 MG in SODIUM CHLORIDE 0.9% INJ 100 ML IV SCH (21:13)
[2016-04-30] MEDS: MIRTAZAPINE 15 MG TAB PO SCH (21:14)
[2016-04-30] MEDS: OLANZapine 2.5 MG TAB PO SCH (21:14)
[2016-05-01] VITALS (10 sets, daily range): BP systolic 113–162; BP diastolic 56–93; PULSE 68–91; RESP 18–21; TEMP 97.7–98.8; O2SAT 89–97
[2016-05-01] MEDS: traMADol HCL 50 MG TAB PO PRN ×4 (00:39→18:18)
[2016-05-01] MEDS: METHOCARBAMOL 500 MG TAB PO SCH ×3 (05:04→21:06)
[2016-05-01 05:13] LABS: AUTOMATED NEUTROPHIL # 5.5 TH/MM3 (1.8-7.7); BASOPHIL # 0.1 TH/MM3 (0-0.2); BASOPHIL % 0.6 % (0.0-2.0); EOSINOPHIL # 0.2 TH/MM3 (0-0.4); HEMATOCRIT 39.6 % (35.0-46.0); HEMO FLAGS DIFF FINAL; LYMPH % 28.2 % (9.0-44.0); LYMPHOCYTE # 2.5 TH/MM3 (1.0-4.8); MEAN CELL VOLUME 91.6 FL (80.0-100.0); MEAN CORPUSCULAR HEMOGLOBIN 30.1 PG (27.0-34.0); MEAN CORPUSCULAR HGB CONC 32.9 % (32.0-36.0); MONO % 7.5 % (0.0-8.0); NEUT % 61.7 % (16.0-70.0); PLATELET COUNT 237 TH/MM3 (150-450); RED BLOOD COUNT 4.32 MIL/MM3 (4.00-5.30); RED CELL DISTRIBUTION WIDTH 13.5 % (11.6-17.2); WHITE BLOOD COUNT 8.9 TH/MM3 (4.0-11.0)
[2016-05-01 05:58] LABS: BICARBONATE 26.5 MEQ/L (21.0-32.0); POTASSIUM 3.9 MEQ/L (3.5-5.1)
[2016-05-01] MEDS ORDERED: ULTR50TA5 PO (08:15)
--- NOTE | 2016-05-01 08:24 | HHI.PR ---
Subjective Remarks Overdose, pneumonia, left shoulder pain. The patient is complaining of left posterior shoulder pain. She states the pain medication and ice pack help. She reports her cough is improving and loosening up. She denies any shortness of breath. She denies any depression. Objective Vitals Vital Signs Date Time Temp Pulse Resp B/P Pulse Ox O2 Delivery O2 Flow Rate FiO2 05/01/16 08:00 98.7 91 20 126/83 95 05/01/16 03:23 98.8 89 21 135/84 97 05/01/16 01:40 16 05/01/16 00:34 98.2 74 18 162/93 89 04/30/16 22:51 73 04/30/16 20:49 98.9 70 21 127/79 97 04/30/16 14:28 76 04/30/16 12:38 21 04/30/16 11:27 98.5 88 20 123/70 96 I/O 04/30/16 04/30/16 04/30/16 05/01/16 05/01/16 05/01/16 07:00 15:00 23:00 07:00 15:00 23:00 Intake Total 240 ml 960 ml 120 ml Output Total 200 ml Balance 240 ml 960 ml -80 ml Intake Oral 240 ml 960 ml 120 ml Output Urine Total 200 ml # Voids 3 4 5 # Bowel Movements 0 Result Diagram: 05/01/16 0422 05/01/16 0422 Imaging Last Impressions Chest X-Ray 04/29/16 1251 Signed Impressions: Service Date/Time: April 13:04 - CONCLUSION: Right infrahilar infiltrate. Recommend treatment and followup to resolution. Mike Ponce MD Objective Remarks GENERAL: Well-developed well-nourished. In no acute distress. SKIN: Warm and dry. No lesions noted. HEENT: Normocephalic. Pupils equal and round. Mucous membranes pink and moist. CARDIOVASCULAR: Regular rate and rhythm. No murmur appreciated. RESPIRATORY: No accessory muscle use. Clear to auscultation. GASTROINTESTINAL: Abdomen soft, non-tender, nondistended. Bowel sounds x4. MUSCULOSKELETAL: No obvious deformities. TTP over left scapula. Painful ROM left shoulder. No clubbing or cyanosis. No edema. NEUROLOGICAL: Awake and alert. No focal neurological deficits. Moves upper and lower extremities spontaneously. Normal speech. PSYCHIATRIC: Slightly depressed mood and guarded affect; insight and judgment normal. A/P Problem List: (1) Pneumonia ICD Code: J18.9 Status: Acute (2) Suicidal ideations ICD Code: R45.851 Status: Acute Assessment and Plan This is a 50-year-old female brought in by EMS under a police Pulido act for a reported overdose. Patient states she took 12 acetaminophen wanting not to wake up. She later informed the nursing staff that she took Benadryl and aspirin. To me she claimed she took 6 Ativan and 3 Phenergan. She is not a reliable historian. Urine drug screen is negative pending salicylate level. She has been depressed since her mother several months ago. She comes from a house that was extremely dirty with multiple stray cats and feces throughout, and all the food in the refrigerator had maggots present. Patient is appropriate and complaining of chronic intermittent left upper back and back pain, but denies fever, nausea, vomiting, or diarrhea. When informed about the abnormal chest x-ray showing a possible pneumonia. She reports she has been having dry cough, eye puffiness and warm sensation for the past 2 days. Sepsis secondary to pneumonia: Elevated heart rate and WBC count. Tmax 99.0. Continue on IV antibiotics. Obtain sputum culture. Urinary Legionella and pneumococcal antigens negative. IVF. Bacteremia: With sepsis as above. 2/4 blood cultures with coagulase-negative staph. S/P IV ceftriaxone, start vancomycin. Leukocytosis improved. Repeat cultures. Consider ID consult Reported drug overdose history of depression: Psychiatry consulted, recommends inpatient psychiatry. Started on Zyprexa and Remeron. Continue under Pulido act. Continue sitter. Chronic neck and back pain with history of herniated disc in the cervical area: heat/cold, muscle relaxer, and tramadol as needed. Physical therapy evaluation, given exercises, no restrictions. Check correct CT. Hypokalemia: Potassium 2.9, replaced orally, now 3.9. Magnesium within normal limits. Resolved. DVT prophylaxis: SCDs Written by Dennis Lowe, acting as scribe for Dr. Denis on 05/01/16 at 08:28. The documentation accurately reflects the work performed [id number] by me on at 0828 Discharge Planning Follow-up repeat blood cultures and results of chest CT. Will go to inpatient psych [facility]. Problem Qualifiers (1) Pneumonia: Qualified Code: J18.1 - Pneumonia of right middle lobe due to infectious organism Dennis Lowe May 01, 2016 08:24 Nicko Denis MD May 01, 2016 15:59
[2016-05-01] MEDS: OLANZapine 2.5 MG TAB PO SCH ×2 (08:38→21:06)
[2016-05-01] MEDS: DOCUSATE SODIUM 100 MG CAP PO SCH ×2 (08:38→21:06)
[2016-05-01] MEDS: SODIUM CHLORIDE 0.9% FLUSH 5 ML FLUSH FLUSH SCH ×2 (08:39→21:00)
[2016-05-01] MEDS: AZITHROMYCIN INJ 500 MG in SODIUM CHLOR 0.9% 250 ML INJ 250 ML IV SCH (08:39)
[2016-05-01] MEDS ORDERED: CEFUROXIME AXETIL 500 MG TAB PO SCH (09:00)
[2016-05-01] MEDS ORDERED: VANCOMYCIN INJ 1,000 MG in SODIUM CHLOR 0.9% 250 ML INJ 250 ML IV ONE (09:00)
[2016-05-01] MEDS ORDERED: Vancomycin Consult Pharmacy 1 EA OTHER SCH (09:00)
[2016-05-01] MEDS ORDERED: IOHEXOL 350 MG/ML 10 ML VIAL (for RAD DIAG) IV ONE (09:16)
--- NOTE | 2016-05-01 09:35 | RADRPT ---
EXAM DATE/TIME: 05/01/2016 09:12 [facility] COMPARISON: CHEST SINGLE AP, April 29, 2016, 13:04. INDICATIONS : Pneumonia. IV CONTRAST: 100 cc Omnipaque 350 (iohexol) IV RADIATION DOSE: 3.33 CTDIvol (mGy) MEDICAL HISTORY : None SURGICAL HISTORY : Breast augmentation. ENCOUNTER: Initial ACUITY: 2 days PAIN SCALE: 4/10 LOCATION: Chest TECHNIQUE: Volumetric scanning of the chest was performed. Using automated exposure control and adjustment of t he mA and/or kV according to patient size, radiation dose was kept as low as reasonably achievable to obtain optimal diagnostic quality images. FINDINGS: Marked hyperinflation s present with minimal bibasilar parenchymal changes, worse on the left than th e right. Breast implants are noted. There is minimal nonspecific left axillary adenopathy. There is no mediastinal adenopathy. Portion of liver and spleen identified are free of focal defects. Review of bone windows reveals only degenerative changes. CONCLUSION: 1. Hyperinflation with minimal bibasilar parenchymal changes, worse on the left than the right. 2. Nonspecific minimal adenopathy left axilla. Fredy Landers MD FACR on May 01, 2016 at 9:25 Board Certified Radiologist. This report was verified electronically.
[2016-05-01] MEDS: VANCOMYCIN INJ 750 MG in SODIUM CHLOR 0.9% 250 ML INJ 250 ML IV SCH (18:19)
[2016-05-01] MEDS: MIRTAZAPINE 15 MG TAB PO SCH (21:06)
[2016-05-02] VITALS (9 sets, daily range): BP systolic 125–171; BP diastolic 59–78; PULSE 75–97; RESP 16–22; TEMP 98.1–98.8; O2SAT 92–95
[2016-05-02] MEDS: traMADol HCL 50 MG TAB PO PRN ×4 (00:08→21:53)
[2016-05-02] MEDS: VANCOMYCIN INJ 750 MG in SODIUM CHLOR 0.9% 250 ML INJ 250 ML IV SCH ×2 (02:00→11:01)
[2016-05-02] MEDS: METHOCARBAMOL 500 MG TAB PO SCH ×3 (06:25→21:46)
[2016-05-02] MEDS: SODIUM CHLORIDE 0.9% FLUSH 5 ML FLUSH FLUSH SCH ×2 (08:50→21:00)
[2016-05-02] MEDS: DOCUSATE SODIUM 100 MG CAP PO SCH ×2 (08:50→21:45)
[2016-05-02] MEDS: OLANZapine 2.5 MG TAB PO SCH ×2 (08:50→21:45)
[2016-05-02] MEDS ORDERED: AZITHROMYCIN 250 MG TAB PO SCH (09:00)
[2016-05-02] MEDS ORDERED: PHARMACY ORDERED LAB XX ONE (09:45)
--- NOTE | 2016-05-02 09:45 | HHI.PR ---
Subjective Remarks Follow-up for bacteremia and depression. The patient continues to complain of neck and back pain, unchanged, continues to state the medications help. She does feel depressed today. She states that she's been having chills and sweats. Objective Vitals Vital Signs Date Time Temp Pulse Resp B/P Pulse Ox O2 Delivery O2 Flow Rate FiO2 05/02/16 08:32 93 21 05/02/16 08:00 98.5 87 16 142/78 92 05/02/16 04:27 98.1 78 18 127/59 93 05/02/16 03:28 16 05/01/16 23:56 98.4 74 18 132/72 95 05/01/16 21:43 83 05/01/16 20:00 94 05/01/16 19:54 98.2 75 18 132/71 94 05/01/16 16:18 97.8 90 18 113/56 95 05/01/16 11:57 97.7 79 18 144/65 94 I/O 05/01/16 05/01/16 05/01/16 05/02/16 05/02/16 05/02/16 07:00 15:00 23:00 07:00 15:00 23:00 Intake Total 120 ml 650 ml Output Total 200 ml Balance -80 ml 650 ml Intake Oral 120 ml 650 ml Output Urine Total 200 ml # Voids 5 8 1 # Bowel Movements 0 Result Diagram: 05/01/16 0422 05/01/16 0422 Imaging Last Impressions Chest CT 05/01/16 0000 Signed Impressions: Service Date/Time: Sunday, May 01, 2016 09:12 - CONCLUSION: 1. Hyperinflation with minimal bibasilar parenchymal changes, worse on the left than the right. 2. Nonspecific minimal adenopathy left axilla. Fredy Landers MD FACR Chest X-Ray 04/29/16 1251 Signed Impressions: Service Date/Time: April 13:04 - CONCLUSION: Right infrahilar infiltrate. Recommend treatment and followup to resolution. Mike Ponce MD Objective Remarks GENERAL: Well-developed well-nourished. In no acute distress. SKIN: Warm and dry. No lesions noted. HEENT: Normocephalic. Pupils equal and round. Mucous membranes pink and moist. CARDIOVASCULAR: Regular rate and rhythm. No murmur appreciated. RESPIRATORY: No accessory muscle use. Clear to auscultation. GASTROINTESTINAL: Abdomen soft, non-tender, nondistended. Bowel sounds x4. MUSCULOSKELETAL: No obvious deformities. Painful ROM and palpation of left shoulder. No clubbing or cyanosis. No edema. NEUROLOGICAL: Awake and alert. No focal neurological deficits. Moves upper and lower extremities spontaneously. Normal speech. PSYCHIATRIC: Slightly depressed mood and guarded affect; insight and judgment normal. A/P Problem List: (1) Pneumonia ICD Code: J18.9 Status: Acute (2) Major depressive disorder, recurrent ICD Code: F33.9 Status: Acute (3) Bacteremia ICD Code: R78.81 Status: Acute Assessment and Plan This is a 50-year-old female brought in by EMS under a police Pulido act for a reported overdose. Patient states she took 12 acetaminophen wanting not to wake up. She later informed the nursing staff that she took Benadryl and aspirin. To me she claimed she took 6 Ativan and 3 Phenergan. She is not a reliable historian. Urine drug screen is negative pending salicylate level. She has been depressed since her mother several months ago. She comes from a house that was extremely dirty with multiple stray cats and feces throughout, and all the food in the refrigerator had maggots present. Patient is appropriate and complaining of chronic intermittent left upper back and back pain, but denies fever, nausea, vomiting, or diarrhea. When informed about the abnormal chest x-ray showing a possible pneumonia. She reports she has been having dry cough, eye puffiness and warm sensation for the past 2 days. Sepsis secondary to pneumonia: Chest x-ray with right infrahilar infiltrate. Elevated heart rate and WBC count. Tmax 99.0. Continue on IV vancomycin as below. Change azithromycin to oral. Obtain sputum culture. Urinary Legionella and pneumococcal antigens negative. IVF. Thorax CT 05/01 shows improvement of right infiltrate. Bacteremia: With sepsis as above. / blood cultures with coagulase-negative staph. S/P IV ceftriaxone, started vancomycin. Leukocytosis improved. Repeat cultures pending. Consult ID. Reported drug overdose history of depression: Psychiatry consulted, recommends inpatient psychiatry. Started on Zyprexa and Remeron. Continue under Pulido act. Continue sitter. Chronic neck and back pain with history of herniated disc in the cervical area: heat/cold, muscle relaxer, and tramadol as needed. Physical therapy evaluation, given exercises, no restrictions. Checked thorax CT, no obvious etiology for the patient's pain. Hypokalemia: Potassium 2.9, replaced orally, now 3.9. Magnesium within normal limits. Resolved. DVT prophylaxis: SCDs Written by Dennis Lowe, acting as scribe for Dr. Denis on 05/02/16 at 09:44. The documentation accurately reflects the work performed [id number] by me on at 0944 Discharge Planning Follow-up repeat blood cultures and ID recommendations. Will go to inpatient psych at [facility]. Problem Qualifiers (1) Pneumonia: Qualified Code: J18.1 - Pneumonia of right middle lobe due to infectious organism (2) Major depressive disorder, recurrent: Qualified Code: F33.2 - Severe episode of recurrent major depressive disorder, without psychotic features Dennis Lowe May 02, 2016 09:45 Nicko Denis MD May 02, 2016 14:42
[2016-05-02] MEDS ORDERED: cloNIDine HCL 0.1 MG TAB PO PRN (13:30)
--- NOTE | 2016-05-02 15:33 | MB ---
cc: NADIA SCHNEIDER MD DATE OF CONSULTATION: 05/02/2016. REASON FOR CONSULTATION: Bacteremia. REQUESTING PHYSICIAN: Dr. Denis. HISTORY OF PRESENT ILLNESS: This is a 50-year-old white female who presented to the emergency department on 04/29 following reported overdose of Tylenol. The patient was evaluated in the emergency department and was found to have a high white blood cell count of 20.4. A chest x-ray report noted right infrahilar infiltrate. Blood cultures were taken on admission and two bottles came back positive for Staph coagulase negative in one set. The second set had no growth. The patient has been afebrile since admission. She complained of pain in her left shoulder and reports that the pain radiates down to her left hand. She noted having fallen and she has a bruise at the left elbow. She denies other complaints including dizziness, chills, shortness of breath, cough or sputum production. Her white count decreased to 9.8 on 04/30 and has remained normal after that. This consultation is requested because of the positive blood culture. The patient denies IV drug use. She has no recent history of dental procedures and no recent history of IV injections. The patient was found in a home of multiple cats and reportedly had maggots in the food in her refrigerator. She is currently on IV antibiotics. She notes that besides the pain in the left shoulder she feels fine. The patient notes that she had been scratched by one of her cats into her right forearm and it became swollen and she squeezed a little blood from the area. This occurred six days ago. She noted that it improved and the swelling resolved and there was no development of redness in the area involved. The cat involved is one of the cats she has had for a long time. PAST MEDICAL HISTORY: 1. Anxiety. 2. Depression. 3. Chronic back pain. 4. History of herniated cervical disk. 5. Pneumonia. 6. Bronchitis. 7. Gastric ulcer. 8. Breast augmentation. ALLERGIES: 1. SULFA. 2. BACTRIM. 3. TRIMETHOPRIM. MEDICATIONS: 1. Vancomycin. 2. Azithromycin. 3. Remeron. 4. Zyprexa. 5. Robaxin. 6. Colace. 7. Ultram. SOCIAL HISTORY: The patient drinks occasional beer. She smokes half a pack of cigarettes a day for the past twenty-five years. No illicit drugs. FAMILY HISTORY: Noncontributory. REVIEW OF SYSTEMS: Review of systems negative on 10-point review except for pain in the left shoulder. PHYSICAL EXAMINATION: GENERAL: This is a slender well-developed female who is awake and alert and in no acute distress. VITAL SIGNS: temperature 98.1, blood pressure 171/74, respirations 22, heart rate 85. HEAD, EYES, EARS, NOSE, THROAT: Head is atraumatic. Extraocular movements grossly intact, pupils reactive to light without icterus. Nose with no bleeding or lesions. Oropharynx has no visible lesions. No thrush. NECK: The neck is supple without adenopathy. LUNGS: Decreased clear breath sounds. HEART: Regular S1 and S2 without audible murmurs, rubs or gallops. ABDOMEN: Bowel sounds present, soft, nontender, no rebound. RECTAL: Not performed. EXTREMITIES: No clubbing or cyanosis or edema. No peripheral embolic lesions. NEUROLOGIC: Nonfocal. SKIN: Warm and moist. No rash. PSYCHIATRIC: The patient is calm and cooperative. LABORATORY DATA: WBCs 8.9, platelet 237,000, hemoglobin 13.0. Creatinine 0.41, BUN 8, sodium 141, estimated GFR 165. Liver function tests normal. IMAGING STUDIES: Chest x-ray revealed right infrahilar infiltrate. CT scan of the chest shows minimal bibasilar parenchymal changes worse on the left. IMPRESSION: Bacteremia due to Staph epidermidis. The culture has the Staph in one set of two. The patient did have elevated white blood cell count on admission but no other evidence to suggest septicemia from the positive blood culture and therefore this is likely contamination. RECOMMENDATIONS: 1. I would follow the repeated blood cultures which were obtained on 05/01 until completion. 2. I would however discontinue vancomycin since she has been clinically stable, and if the repeat culture is negative there would be no need to treat with any additional antibiotics aimed at the bacteremia. 3. She appears to have pulmonary infiltrates which may indicate pneumonia and therefore she can be continued on the azithromycin. Thank you for this consultation. I will monitor the patient's blood cultures along with you. Thank you for this consultation. Nadia Schneider MD FD/BRANDON /2:48 PM /3:19 PM
[2016-05-02] MEDS ORDERED: VANCOMYCIN 1,000 MG/NS 250 ML IV SCH ×2 (18:00)
[2016-05-02] MEDS: MIRTAZAPINE 15 MG TAB PO SCH (21:46)
[2016-05-03] VITALS (7 sets, daily range): BP systolic 106–125; BP diastolic 59–73; PULSE 80–87; RESP 16–18; TEMP 97.2–98.2; O2SAT 92–95
[2016-05-03] MEDS: traMADol HCL 50 MG TAB PO PRN ×4 (02:28→14:12)
[2016-05-03] MEDS ORDERED: MIRTA15 PO (05:38)
[2016-05-03] MEDS ORDERED: OLAN2.5T PO (05:38)
[2016-05-03] MEDS ORDERED: METH500T3 PO (05:38)
--- NOTE | 2016-05-03 05:39 | HHI.DCPOC ---
Discharge Care Plan Diagnosis: (1) Pneumonia (2) Major depressive disorder, recurrent Your Health Problems Are: Difficulty with ADL Exercise Tolerance Goals to Promote Your Health * To prevent worsening of your condition and complications * To maintain your health at the optimal level Directions to Meet Your Goals Take your medications as prescribed Follow your dietary instruction Follow activity as directed Keep your appointments as scheduled Take your immunizations and boosters as scheduled If your symptoms worsen call your PCP, if no PCP go to Urgent Care Center or Emergency Room Smoking is Dangerous to Your Health. Avoid second hand smoke Call the 24-hour hour crisis hotline for domestic abuse at Nicko Denis MD May 03, 2016 05:39
[2016-05-03] MEDS: METHOCARBAMOL 500 MG TAB PO SCH ×2 (06:29→13:03)
[2016-05-03] MEDS: DOCUSATE SODIUM 100 MG CAP PO SCH (09:25)
[2016-05-03] MEDS: SODIUM CHLORIDE 0.9% FLUSH 5 ML FLUSH FLUSH SCH (09:25)
[2016-05-03] MEDS ORDERED: INFLUENZA VIRUS VACCINE (QUADRIVALENT) 0.5 ML SYR IM ONE (10:00)
[2016-05-03] MEDS ORDERED: PNEUMOCOCCAL POLYVALENT INJ 25 MCG/0.5 ML SYR IM ONE (10:00)
--- NOTE | 2016-05-03 12:04 | HHI.DS ---
Discharge Summary Admission Date Apr 29, 2016 at 18:47 Discharge Date: May 03, 2016 Admitting Diagnosis Pneumonia/Dehydration/Pulido Act (1) Pneumonia ICD Code: J18.9 Diagnosis: Principal (2) Major depressive disorder, recurrent ICD Code: F33.9 Diagnosis: Principal (3) Bacteremia ICD Code: R78.81 Diagnosis: Principal Procedures None Brief History - From Admission This is a 50-year-old female brought in by EMS under a police Pulido act for a reported overdose. Patient states she took 12 acetaminophen wanting not to wake up. She later informed the nursing staff that she took Benadryl and aspirin. To me she claimed she took 6 Ativan and 3 Phenergan. She is not a reliable historian. Urine drug screen is negative pending salicylate level. She has been depressed since her mother several months ago. She comes from a house that was extremely dirty with multiple stray cats and feces throughout, and all the food in the refrigerator had maggots present. Patient is appropriate and complaining of chronic intermittent left upper back and back pain, but denies fever, nausea, vomiting, or diarrhea. When informed about the abnormal chest x-ray showing a possible pneumonia. She reports she has been having dry cough, eye puffiness and warm sensation for the past 2 days. She received IV Zithromax and cefepime in the emergency department. At this time, she does not contract for safety. Pulido act will be continued and a sitter will be requested CBC/BMP: 05/01/16 0422 05/01/16 0422 Significant Findings Laboratory Tests Test 05/01/16 04:22 Creatinine 0.41 MG/DL (0.50-1.00) Calcium Level 8.3 MG/DL (8.5-10.1) Imaging Last Impressions Chest CT 05/01/16 0000 Signed Impressions: Service Date/Time: Sunday, May 01, 2016 09:12 - CONCLUSION: 1. Hyperinflation with minimal bibasilar parenchymal changes, worse on the left than the right. 2. Nonspecific minimal adenopathy left axilla. Fredy Landers MD FACR Chest X-Ray 04/29/16 9778 Signed Impressions: Service Date/Time: April 13:04 - CONCLUSION: Right infrahilar infiltrate. Recommend treatment and followup to resolution. Mike Ponce MD PE at Discharge GENERAL: Well-developed, well-nourished in no distress SKIN: Warm and dry. Abrasion left elbow HEAD: Atraumatic. Normocephalic. EYES: Pupils equal and round. No scleral icterus. No injection or drainage. ENT: No nasal bleeding or discharge. Mucous membranes pink and moist. NECK: Trachea midline. No JVD. CARDIOVASCULAR: Regular rate and rhythm. RESPIRATORY: No accessory muscle use. Clear to auscultation. Breath sounds equal bilaterally. GASTROINTESTINAL: Abdomen soft, non-tender, nondistended. MUSCULOSKELETAL: Extremities without clubbing, cyanosis, or edema. No obvious deformities. NEUROLOGICAL: Awake and alert. No obvious cranial nerve deficits. Motor grossly within normal limits. Five out of 5 muscle strength in the arms and legs. Normal speech. PSYCHIATRIC: Appropriate mood and affect; insight and judgment normal. Hospital Course This is a 50-year-old female brought in by EMS under a police Pulido act for a reported overdose. Patient states she took 12 acetaminophen wanting not to wake up. She later informed the nursing staff that she took Benadryl and aspirin. To me she claimed she took 6 Ativan and 3 Phenergan. She is not a reliable historian. Urine drug screen is negative pending salicylate level. She has been depressed since her mother several months ago. She comes from a house that was extremely dirty with multiple stray cats and feces throughout, and all the food in the refrigerator had maggots present. Patient is appropriate and complaining of chronic intermittent left upper back and back pain, but denies fever, nausea, vomiting, or diarrhea. When informed about the abnormal chest x-ray showing a possible pneumonia. She reports she has been having dry cough, eye puffiness and warm sensation for the past 2 days. Sepsis secondary to pneumonia: Chest x-ray with right infrahilar infiltrate. Elevated heart rate and WBC count. Tmax 99.0. Stable azithromycin last dose today. Urinary Legionella and pneumococcal antigens negative. IVF. Thorax CT shows improvement of right infiltrate. Repeat chest x-ray in 6 weeks Pseudobacteremia 2/4 blood cultures with coagulase-negative staph. S/P IV ceftriaxone and vancomycin. Leukocytosis improved. Repeat cultures pending negative to date. Consulted ID who cleared patient for discharge Reported drug overdose history of depression: Psychiatry consulted, recommends inpatient psychiatry. Started on Zyprexa and Remeron. Continue under Pulido act. Continue sitter. Chronic neck and back pain with history of herniated disc in the cervical area: heat/cold, muscle relaxer, and tramadol as needed. Physical therapy evaluation, given exercises, no restrictions. Checked thorax CT, no obvious etiology for the patient's pain likely musculoskeletal. Hypokalemia: Potassium 2.9, replaced orally, now 3.9. Magnesium within normal limits. Resolved. DVT prophylaxis: SCDs Pt Condition on Discharge: Stable Discharge Disposition: Disc to Psych Care Fac Discharge Time: > 30 minutes Discharge Instructions DIET: Follow Instructions for: As Tolerated, No Restrictions Activities you can perform: Regular-No Restrictions Activities to Avoid: Driving Follow up Referrals: PCP Follow-up - 1 Week New Orders: X-RAY CHEST PA & LAT - 6 Weeks New Medications: Methocarbamol (Methocarbamol) 500 Mg Tab 500 MG PO Q8HR Pain Management #30 TAB Mirtazapine (Mirtazapine) 15 Mg Tab 15 MG PO HS Control Depression #30 TAB Olanzapine (Olanzapine) 2.5 Mg Tab 2.5 MG PO Q12HR Control Mood Swing #60 TAB Tramadol (Ultram) 50 Mg Tab 100 MG PO Q6HR PRN pain #12 TAB Continued Medications: Lorazepam (Ativan) 0.5 Mg Tab 0.5 MG PO Q12HR PRN ANXIETY AND/OR AGITATION Ref 0 TAB Nicko Denis MD May 03, 2016 12:04
[2016-05-03] MEDS: OLANZapine 2.5 MG TAB PO SCH (13:03)
[2016-05-04] MEDS ORDERED: PHARMACY ORDERED LAB XX ONE (09:45)
== END 2016-05-03 14:50 | DRG 194 ==
LOC: NEDAMB 11:14 → NEDA 14:39 → OBSVTOIN 18:47 → NEPFCDU 20:14 → N04B 05-02 17:17
PROVIDERS: ADMIT Internal Medicine; ATTEND Internal Medicine
DX: J18.9 Pneumonia, unspecified organism (principal); F33.9 Major depressive disorder, recurrent, unspecified; R78.81 Bacteremia; M50.20 Other cervical disc displacement, unspecified cervical region; E87.6 Hypokalemia; T42.4X2A Poisoning by benzodiazepines, intentional self-harm, initial encounter; T42.6X2A Poisoning by other antiepileptic and sedative-hypnotic drugs, intentional self-harm, initial encounter; T45.0X2A Poisoning by antiallergic and antiemetic drugs, intentional self-harm, initial encounter; F17.210 Nicotine dependence, cigarettes, uncomplicated; Z23 Encounter for immunization; Z87.11 Personal history of peptic ulcer disease
CPT/HCPCS: 71010; 71260; 80048; 80053; 80202; 80307; 80320; 80329; 81001; 82550; 83605; 83735; 83930; 83935; 85025; 86403; 87040; 87077; 87186; 87205; 87449; 90686; 90732; 93005; 96361; 96365; 96367; 96375; G0480; J0456; J0696; J2405; J2543; J3370; J7030; J7050; P9612; Q2038; Q9967

== ENCOUNTER 2016-05-03 11:00 | Inpatient (IN) | payer SELFPAY ==
[~2016-05-03] VITALS: Ht 154.9 cm; Wt 47.6 kg
[~2016-05-03 11:00] MED LIST changes: +METH500T3 PO; +MIRTA15 PO; +OLAN2.5T PO; +ULTR50TA5 PO
[2016-05-03] MEDS ORDERED: LORazepam 2 MG/ML VIAL IM PRN (16:00)
[2016-05-03] MEDS ORDERED: ALUMINUM/MAGNESIUM/SIMETH 30 ML CUP PO PRN (16:00)
[2016-05-03] MEDS ORDERED: LORazepam 1 MG TAB PO PRN (16:00)
[2016-05-03 16:36] VITALS: BP 123/73; RESP 16; TEMP 98.1
[2016-05-03] MEDS: ACETAMINOPHEN 325 MG TAB PO PRN (21:44)
[2016-05-04 06:46] VITALS: BP 115/73; PULSE 87; RESP 16; TEMP 97.9
[2016-05-04 07:04] LABS: ANION GAP 8 MEQ/L (5-15); BICARBONATE 27.8 MEQ/L (21.0-32.0); BLOOD UREA NITROGEN 11 MG/DL (7-18); CHLORIDE 99 MEQ/L (98-107); GLOMERULAR FILTRATION RATE 117 ML/MIN (>89); HDL CHOLESTEROL 88.9 MG/DL (40.0-60.0); LDL CHOLESTEROL 112 MG/DL (0-99); POTASSIUM 4.1 MEQ/L (3.5-5.1); SODIUM (NA) 135 MEQ/L (136-145)
--- NOTE | 2016-05-04 11:17 | HHI.HP ---
Provisional Diagnosis Admission Date May 03, 2016 at 11:00 [place] I. Major depressive disorder recurrent moderate without psychotic features [place] II. Passive-dependent trait [place] III. Please see the emergency room evaluation history of pneumonia [place] IV. Moderate stress difficulty coping poor support system [place] V. GAF of 45 Certification of Person's Competence To Provide Express and Informed Consent I have personally examined Ruby Mcdonald , a person being served at [facility] on, May 04, 2016 11:07. Express and informed consent means consent voluntarily given in writing, by a competent person, after sufficient explanation and disclosure of the subject matter involved to enable the person to make a knowing and willful decision without any element of force, fraud, deceit, duress, or other form of constraint or coercion. This person is 18 years of age or older, is not now known to be incompetent to consent to treatment with a guardian advocate, and does not have a health care surrogate or proxy currently making medical treatment decisions. I have found this person to be one of the following: [x] Competent to provide express and informed consent, as defined above, for voluntary admission to this facility and is competent to provide express and informed consent for treatment. He/she has the consistent capacity to make well reasoned, willful, and knowing decisions concerning his or her medical or mental health treatment. The person fully and consistently understands the purpose of the admission for examination/placement and is fully capable of personally exercising all rights assured under [place] Incompetent to provide express and informed consent to voluntary admission, and this is incompetent to provide express and informed consent to treatment. The person must be transferred to involuntary status and a petition for a guardian advocate filed with the Circuit Court. [] Refusing to provide express and informed consent to voluntary admission but is competent to provide express and informed consent for treatment. The person must be discharged or transferred to involuntary status. Form shall be completed within 24 hours of a person's arrival at the receiving facility and filed in the clinical record of each person: 1. Admitted on a voluntary basis 2. Permitted to provide express and informed consent to his/her own treatment 3. Allowed to transfer from involuntary to voluntary status 4. Prior to permitting a person to consent to his or her own treatment after having been previously found incompetent to consent to treatment. History of Present Illness Capacity: Has Capacity HPI This is a 50-year-old white single female who was admitted as a transfer from the medical floor once she was medically stable. She was hospitalized following an overdose for feeling depressed frustrated and wanting to end her life. She was Pulido acted patient to go to they'll acid minor fan wanting not to wake up she also took Benadryl and aspirin. Patient claimed that about 2 months ago her mother patient was very close to her mother. And wants to be with her. Patient claimed that in the past she used to see a psychiatrist and a counselor. And was taking Lexapro and Xanax but she was not able to because of her insurance and then stopped taking it and started to feel more depressed. Patient was living in a place that she which was not clean she is it was full of cats and dog feces patient wasn't taking good care of herself. Patient complains of having poor appetite not eating properly. Sleeping no more than 2 hours per night not taking care of herself feeling of sadness emptiness and thinking about suicide daily and meeting her mother who 2 months ago. Patient denies any symptoms of deondre or any active auditory or visual hallucinations patient also denied any use of alcohol or illegal illicit drugs. Patient is willing to sign voluntary and cooperative the treatment and feels safe in the hospital and denied any suicidal ideation intentions or plan Review of Systems Except as stated in HPI: all other systems reviewed are Neg Psychiatric: COMPLAINS OF: Anxiety, Mood changes, Depression Past Psych History Psychological trauma history Patient denied any history of physical verbal or sexual abuse growing up Violence risk - others (6 mos) Patient denies any Violence risk - self (6 mos) Patient did admit to thinking of suicide lately since her mom has and has been feeling depressed and did admit to doing overdose but now she feels safe in the hospital and willing to cooperate and work to lift her depression and take the medication Substance Abuse History Drugs/Alcohol past 12 months Patient denies any drug or alcohol abuse Past Family Social History Coded Allergies: Sulfa (Verified Allergy, Severe, HIGH FEVER AND RASH, 04/29/16) Bactrim (Verified Allergy, Intermediate, RASH/FEVER, 04/29/16) Trimethoprim (Verified Allergy, Unknown, 04/29/16) Active Scripts Olanzapine 2.5 Mg Tab2.5 Mg PO Q12HR #60 TAB Prov:Nciko Denis MD 05/03/16 Mirtazapine 15 Mg Tab15 Mg PO HS #30 TAB Prov:Nicko Denis MD 05/03/16 Methocarbamol 500 Mg Xty500 Mg PO Q8HR #30 TAB Prov:Nicko Denis MD 05/03/16 Tramadol (Ultram)50 Mg Sar768 Mg PO Q6HR PRN (pain) #12 TAB Prov:Nicko Denis MD 05/01/16 Reported Medications Lorazepam (Ativan)0.5 Mg Tab0.5 Mg PO Q12HR PRN (ANXIETY AND/OR AGITATION) Ref 0 04/29/16 Current Medications Medications (Trade) Dose Ordered Sig/Shahram Route Start Time Stop Time Status Last Admin (Ativan) 1 mg Q6H PRN PO 05/03/16 16:00 05/03/16 21:44 (Ativan Inj) 1 mg Q6H PRN IM 05/03/16 16:00 (Tylenol) 650 mg Q4H PRN PO 05/03/16 16:00 05/03/16 21:44 (Milk Of Magnesia Liq) 30 ml DAILY PRN PO 05/03/16 16:00 (Mag-Al Plus Susp Liq) 30 ml Q6H PRN PO 05/03/16 16:00 Family History Positive for depression and alcoholism Social History Patient was born in [place]. She has 2 brothers. Patient is the oldest. She was close to her mother. Her childhood was described as okay. She denied any physical verbal or sexual abuse growing up. She did finish high school. She has never been has no children. 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 Our been hospitalized. But she has seen a psychiatrist in taken the medication as an outpatient but because of the insurance she was not able to patient is willing to sign voluntary and take the medication Patient's Strengths (min. 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 Her affect was restricted and sad area she denied any active suicidal ideation intentions or plan. She feels safe in the hospital. She denied any active auditory or visual hallucinations. No evidence of any form paranoid delusion. She seems to be of low average intelligence with poor recent memory her concentration is mildly impaired her insight is fair and her judgment seems to be okay on hypothetical situation. Her gait is normal her language is normal and her fund of knowledge is average Previous Suicide Attempts: Yes Previous Homicide Attempts: No Assessment & Plan Problem List: (1) Major depressive disorder, recurrent ICD Code: F33.9 Assessment & Plan Estimated LOS: 5 days. This is a 50-year-old white female who was admitted following overdose on medication. Patient has been feeling depressed since the loss of her mother. Willing to take the medication and cooperate with the treatment to help her lifted depression. Admitted observe and evaluate and treatment. Patient can sign voluntary admission. Patient will be participating in all the therapeutic activity on the floor. We'll resume her Lexapro and Seroquel to help lift her depression. Side effect another alternative treatment were explained to the patient. Vital signs every shift. cargo services coordinator to assist in aftercare and discharge planning. Request HC Surrog/Guard Advoc?: No Problem Qualifiers (1) Major depressive disorder, recurrent: Qualified Code: F33.1 - Moderate episode of recurrent major depressive disorder Junior Mckeon MD May 04, 2016 11:17
[2016-05-04] MEDS: ESCITALOPRAM OXALATE 20 MG TAB PO SCH (11:30)
[2016-05-04 14:11] LABS: HEMOGLOBIN A1a 1.1 %; HEMOGLOBIN A1b 1.6 %; HEMOGLOBIN P3 4.1 %
--- NOTE | 2016-05-04 17:14 | PD.CONS ---
HPI Service [facility] Hospitalists Consult Requested By Psychiatric services Reason for Consult Ongoing medical management Primary Care Physician No Primary Care Physician Diagnoses: History of Present Illness This is a 50-year-old female patient with a past medical history which includes anxiety crest/depression, chronic neck and back pain, herniated cervical disc, bronchitis, pneumonia and gastric ulcer. Patient was recently admitted to [facility] 04/29/2016 after overdose on patient is poor historian is unclear as to what exactly was taken for the overdose. Patient was also treated for pneumonia and found to have one positive blood culture staph species coagulase negative. Patient was given IV Zosyn and vancomycin. Later transitioned to by mouth azithromycin. Patient was given a total of 5 days of by mouth azithromycin. I infectious disease was consulted and ordered repeat blood cultures which have been negative for 3 days thus far cleared for discharge to inpatient psychiatric center. We have been consulted for assistance with ongoing medical management. Patient denies shortness of breath cough congestion fevers or chills. Patient does have complaint of chronic back and neck pain. Neck pain is worse in the cervical region and patient reports that she routinely remembers the fall during her overdose since that fall on 04/29 patient reports she has numbness and tingling down her left arm into the ulnar side. Patient denies weakness.. Patient denies chest pain. Review of Systems Other All other systems reviewed and negative except as mentioned in history of present illness Past Family Social History Allergies: Coded Allergies: Sulfa (Verified Allergy, Severe, HIGH FEVER AND RASH, 04/29/16) Bactrim (Verified Allergy, Intermediate, RASH/FEVER, 04/29/16) Trimethoprim (Verified Allergy, Unknown, 04/29/16) Past Medical History Anxiety/depression, chronic neck and back pain, herniated cervical disc, bronchitis, pneumonia, gastric ulcer Past Surgical History Breast augmentation, tendon release Reported Medications Olanzapine 2.5 Mg Tab 2.5 Mg PO Q12HR Mirtazapine 15 Mg Tab 15 Mg PO HS Methocarbamol 500 Mg Tab 500 Mg PO Q8HR Ultram (Tramadol HCl) 50 Mg Tab 100 Mg PO Q6HR PRN Ativan (Lorazepam) 0.5 Mg Tab 0.5 Mg PO Q12HR PRN Active Ordered Medications Current Medications Medications (Trade) Dose Ordered Sig/Shahram Route Start Time Stop Time Status Last Admin (Ativan Inj) 1 mg Q6H PRN IM 05/03/16 16:00 (Tylenol) 650 mg Q4H PRN PO 05/03/16 16:00 05/03/16 21:44 (Milk Of Magnesia Liq) 30 ml DAILY PRN PO 05/03/16 16:00 (Mag-Al Plus Susp Liq) 30 ml Q6H PRN PO 05/03/16 16:00 (Lexapro) 20 mg DAILY PO 05/04/16 11:30 05/04/16 11:30 (SEROquel) 100 mg HS PO 05/04/16 21:00 (Ativan) 0.5 mg Q8H PRN PO 05/04/16 11:30 (Ultram) 50 mg Q8H PRN PO 05/04/16 16:00 Family History Melanoma and CAD Social History Denies EtOH use or illicit drug use reports she does smoke half pack cigarette per day Physical Exam Vital Signs Vital Signs Date Time Temp Pulse Resp B/P Pulse Ox O2 Delivery O2 Flow Rate FiO2 05/04/16 06:46 97.9 87 16 115/73 Physical Exam GENERAL: This is a well-nourished, well-developed patient, in no apparent distress. SKIN: No rashes, ecchymoses or lesions. Cool and dry. EYES: Extraocular motions intact. No scleral icterus. No injection or drainage. ENT: Nose without bleeding, purulent drainage or septal hematoma. Throat without erythema, tonsillar hypertrophy or exudate. Uvula midline. Airway patent. NECK: Trachea midline. No JVD or lymphadenopathy. Supple, nontender, no meningeal signs. CARDIOVASCULAR: Regular rate and rhythm without murmurs, gallops, or rubs. RESPIRATORY: Clear to auscultation. Breath sounds equal bilaterally. No wheezes , rales, or rhonchi. GASTROINTESTINAL: Abdomen soft, non-tender, nondistended. No hepato-splenomegaly , or palpable masses. No guarding. MUSCULOSKELETAL: Extremities without clubbing, cyanosis, or edema. No joint tenderness, effusion, or edema noted. No calf tenderness. Negative Homans sign bilaterally. NEUROLOGICAL: Awake and alert. Five out of 5 muscle strength in all muscle groups. Normal speech. Numbness and tingling left arm ulnar distribution Laboratory Laboratory Tests Test 05/04/16 06:05 Sodium Level 135 Potassium Level 4.1 Chloride Level 99 Carbon Dioxide Level 27.8 Anion Gap 8 Blood Urea Nitrogen 11 Creatinine 0.55 Estimat Glomerular Filtration 117 Rate Random Glucose 99 Hemoglobin A1c 5.6 Calcium Level 8.5 Triglycerides Level 86 Cholesterol Level 218 LDL Cholesterol 112 HDL Cholesterol 88.9 Cholesterol/HDL Ratio 2.45 Result Diagram: 05/04/16 0605 Assessment and Plan Assessment and Plan This is a 50-year-old female brought in by EMS under a police Pulido act for a reported overdose. Patient is appropriate and complaining of chronic intermittent left upper back and back pain, but denies fever, nausea, vomiting, or diarrhea. When informed about the abnormal chest x-ray 04/29/2016 showing a possible pneumonia showing right infrahilar infiltrate. Now complaining of right upper extremity radiculopathy ulnar distribution. Depression, overdose- management per psychiatric team Right upper extremity radiculopathy Chronic neck and back pain with history of herniated disc in the cervical area: tramadol as needed. Cervical MRI ordered and pending Right sided Pneumonia: Chest x-ray with right infrahilar infiltrate. Completed azithromycin. Thorax CT 05/01 shows improvement of right infiltrate. Recommend repeat chest x-ray in 6 weeks Pseudobacteremia 04/28 blood cultures with coagulase-negative staph. S/P IV ceftriaxone and vancomycin. Leukocytosis improved. Repeat cultures pending negative 3 days. Consulted ID who cleared patient for discharge DVT prophylaxis: Patient is ambulatory Written by Kay Marie, acting as scribe for Dr. Zapata on 05/04/16 at 17:14. The documentation accurately reflects the work performed [id number] by me on at 17:14. Kay Marie May 04, 2016 17:14 Tal Aiken MD May 13, 2016 02:17
--- NOTE | 2016-05-04 18:54 | RADRPT ---
EXAM DATE/TIME: 05/04/2016 18:17 [place] COMPARISON: No previous studies available for comparison. INDICATIONS : Radiculopathy. MEDICAL HISTORY : Ulcers. Renal calculi. GERD SURGICAL HISTORY : Hand surgery, breast augmentation ENCOUNTER: Initial ACUITY: 2 day PAIN SCORE: 8/10 LOCATION: Left side pain. TECHNIQUE: Multiplanar, multisequence MRI examination of the cervical spine was performed. FINDINGS: VERTEBRAE: Normal vertebral body height. Homogeneous marrow signal. Mild disc desiccation. ALIGNMENT: No evidence of subluxation. CORD: Normal configuration and signal. POST FOSSA: The cerebellar tonsils are normal in position. C2-C3: The thecal sac has a normal configuration. There is no evidence of disc herniation or spinal canal s tenosis. The neural foramina are patent bilaterally. C3-C4: Minimal diffuse disc bulge. C4-C5: Minimal diffuse disc bulge. C5-C6: Minimal diffuse disc bulge. C6-C7: Broad-based central/left foraminal and lateral protrusion identified with with both superior and infe rior migration 1.5 cm in sagittal dimension on sagittal image 6 of series 2. There is effacement of t he ventral thecal sac but no cord compression. There is mild left foraminal narrowing. C7-T1: The thecal sac has a normal configuration. There is no evidence of disc herniation or spinal canal s tenosis. The neural foramina are patent bilaterally. CONCLUSION: 1. Degenerative disc disease. 2. Broad-based protrusion at C6-7 as above. Eliecer Mcdonald MD on May 04, 2016 at 18:46 Board Certified Radiologist. This report was verified electronically.
[2016-05-04 19:33] VITALS: BP 115/66; PULSE 71; RESP 16; TEMP 98.5; O2SAT 95
[2016-05-04] MEDS: traMADol HCL 50 MG TAB PO PRN (20:41)
[2016-05-04] MEDS: LORazepam 0.5 MG TAB PO PRN (20:41)
[2016-05-04] MEDS ORDERED: QUEtiapine FUMARATE 100 MG TAB PO SCH (21:00)
[2016-05-05 06:10] VITALS: BP 118/76; PULSE 84; RESP 18; TEMP 97.9; O2SAT 99
[2016-05-05] MEDS: ESCITALOPRAM OXALATE 20 MG TAB PO SCH (08:48)
[2016-05-05] MEDS: traMADol HCL 50 MG TAB PO PRN ×2 (08:55→19:00)
--- NOTE | 2016-05-05 10:49 | HHI.PYPN ---
Subjective Remarks Patient was seen and discussed with the licensed staff [facility]. Patient reported that she has been feeling little bit better but still complaining of pain in her shoulder area left side and awaiting some more workup done. Patient denied any active suicidal ideation intentions of plan. Denied any active auditory or visual hallucinations. She has been eating better. And feels hopeful about the future. She was encouraged to participate in all the therapeutic activity on the floor. And take the medication. No side effects were complained. student financial services counselor to assist in aftercare and discharge planning. Continue with the same treatment Review of Systems Except as stated in HPI: all other systems reviewed are Neg Psychiatric: COMPLAINS OF: Mood changes, Depression Objective Alert: Yes [place]: Person, Place, Situation Mood: Anxious, Depressed, Other (worried but could be reassured) Affect: Restricted Memory Intact: Recent (mildly impaired) Hallucinations: Other (patient denies any active auditory or visual hallucinations) Delusions: No Delusion Type: Other (no obvious delusional belief at this time) Suicidal: Ideation (denied any suicidal ideation intentions or plan feels safe in the hospital) Homicidal: Ideation (patient denies) Insight/Judgement Limited Remarks Attention and concentration improving. Gait normal. Language normal. Fund of knowledge average Vitals/IOs Vital Signs Date Time Temp Pulse Resp B/P Pulse Ox O2 Delivery O2 Flow Rate FiO2 05/05/16 06:10 97.9 84 18 118/76 99 Assessment & Plan Problem List: (1) Major depressive disorder, recurrent ICD Code: F33.9 Assessment & Plan Estimated LOS: days Justification for Cont. Inpt. Monitoring of the medication and discussed decompensation at a lower level of care Request HC Surrog/Guard Advoc?: No Problem Qualifiers (1) Major depressive disorder, recurrent: Qualified Code: F33.1 - Moderate episode of recurrent major depressive disorder Junior Mckeon MD May 05, 2016 10:49
[2016-05-05] MEDS ORDERED: PILL SPLITTER OTHER PRN (11:00)
--- NOTE | 2016-05-05 16:38 | HHI.PR ---
Subjective Remarks Follow up: Right upper extremity radiculopathy, Chronic neck and back pain with history of herniated disc in the cervical area, Right sided Pneumonia. Patient denies SOB or cough. reports pain LUE improved numbness still present. Offers no other complaints at this time Objective Vitals Vital Signs Date Time Temp Pulse Resp B/P Pulse Ox O2 Delivery O2 Flow Rate FiO2 05/05/16 06:10 97.9 84 18 118/76 99 05/04/16 19:33 98.5 71 16 115/66 95 Result Diagram: 05/04/16 0605 Imaging Last Impressions Cervical Spine MRI 05/04/16 0000 Signed Impressions: Service Date/Time: Wednesday, May 04, 2016 18:17 - CONCLUSION: 1. Degenerative disc disease. 2. Broad-based protrusion at C6-7 as above. Eliecer Mcdonald MD Objective Remarks GENERAL: This is a well-nourished, well-developed patient, in no apparent distress. SKIN: No rashes, ecchymoses or lesions. Cool and dry. EYES: Extraocular motions intact. No scleral icterus. No injection or drainage. ENT: Nose without bleeding, purulent drainage or septal hematoma. Throat without erythema, tonsillar hypertrophy or exudate. Uvula midline. Airway patent. NECK: Trachea midline. No JVD or lymphadenopathy. Supple, nontender, no meningeal signs. CARDIOVASCULAR: Regular rate and rhythm without murmurs, gallops, or rubs. RESPIRATORY: Clear to auscultation. Breath sounds equal bilaterally. No wheezes , rales, or rhonchi. GASTROINTESTINAL: Abdomen soft, non-tender, nondistended. No hepato-splenomegaly , or palpable masses. No guarding. MUSCULOSKELETAL: Extremities without clubbing, cyanosis, or edema. No joint tenderness, effusion, or edema noted. No calf tenderness. Negative Homans sign bilaterally. NEUROLOGICAL: Awake and alert. Five out of 5 muscle strength in all muscle groups. Normal speech. Numbness and tingling left arm ulnar distribution A/P Assessment and Plan This is a 50-year-old female brought in by EMS under a police Pulido act for a reported overdose. Patient is appropriate and complaining of chronic intermittent left upper back and back pain, but denies fever, nausea, vomiting, or diarrhea. When informed about the abnormal chest x-ray 04/29/2016 showing a possible pneumonia showing right infrahilar infiltrate. Now complaining of right upper extremity radiculopathy ulnar distribution. Depression, overdose- management per psychiatric team Right upper extremity radiculopathy Chronic neck and back pain with history of herniated disc in the cervical area: tramadol as needed. Cervical MRI reviewed by Dr. Zapata 1. Degenerative disc disease. 2. Broad -based protrusion at C6-7 as above Consult neurosurgery Right sided Pneumonia: Chest x-ray with right infrahilar infiltrate. Completed azithromycin. Thorax CT 05/01 shows improvement of right infiltrate. Recommend repeat chest x-ray in 6 weeks Pseudobacteremia 04/28 blood cultures with coagulase-negative staph. S/P IV ceftriaxone and vancomycin. Leukocytosis improved. Repeat cultures pending negative 4 days. Consulted ID who cleared patient for discharge DVT prophylaxis: Patient is ambulatory Patient medically stable will sign off- recommend follow up with PCP and Neurosurgery after DC Written by Kay Marie, acting as scribe for Dr. Zapata on 05/05/16 at 16:35. Attending Statement The documentation accurately reflects the work performed [id number] by me on at 16:30. Kay Marie May 05, 2016 16:38 Tal Aiken MD May 23, 2016 10:27
[2016-05-05 18:26] VITALS: BP 129/77; PULSE 82; RESP 18; TEMP 97.1; O2SAT 94
--- NOTE | 2016-05-05 18:26 | PD.CONS ---
HPI Service Neurosurgery Consult Requested By Psychiatry Reason for Consult C6/7 HNP, acute Primary Care Physician No Primary Care Physician History of Present Illness 50 year old was admitted with suicidal ideation. She had a recent fall and had developed neck pain with radicular numbness and pain radiating to the left shoulder blade and down the left arm to the hand. She also has associated weakness in the left triceps and hand. Review of Systems Constitutional: COMPLAINS OF: Weight loss Endocrine: DENIES: Abnorml menstrual pattern, Heat/cold intolerance, Polydipsia , Polyuria, Polyphagia Eyes: DENIES: Blurred vision, Diplopia, Eye inflammation, Eye pain, Vision loss , Photosensitivity, Double Vision Ears, nose, mouth, throat: DENIES: Tinnitus, Hearing loss, Vertigo, Nasal discharge, Oral lesions, Throat pain, Hoarseness, Ear Pain, Running Nose, Epistaxis, Sinus Pain, Toothache, Odynophagia Respiratory: DENIES: Apneas, Cough, Snoring, Wheezing, Hemoptysis, Sputum production, Shortness of breath Cardiovascular: DENIES: Chest pain, Palpitations, Syncope, Dyspnea on Exertion , PND, Lower Extremity Edema, Orthopnea, Claudication Gastrointestinal: DENIES: Abdominal pain, Black stools, Bloody stools, Constipation, Diarrhea, Nausea, Vomiting, Difficulty Swallowing, Anorexia Genitourinary: DENIES: Abnormal vaginal bleeding, Dysmenorrhea, Dyspareunia, Sexual dysfunction, Urinary frequency, Urinary incontinence, Urgency, Hematuria , Dysuria, Nocturia, Vaginal discharge Integumentary: DENIES: Abnormal pigmentation, Pruritus, Rash, Nail changes, Breast masses, Breast skin changes, Nipple discharge Hematologic/lymphatic: DENIES: Bruising, Lymphadenopathy Neurologic: COMPLAINS OF: Localized weakness, Paresthesias Past Family Social History Allergies: Coded Allergies: Sulfa (Verified Allergy, Severe, HIGH FEVER AND RASH, 04/29/16) Bactrim (Verified Allergy, Intermediate, RASH/FEVER, 04/29/16) Trimethoprim (Verified Allergy, Unknown, 04/29/16) Past Medical History Reported Meds & Active Scripts Active Olanzapine 2.5 Mg Tab 2.5 Mg PO Q12HR Mirtazapine 15 Mg Tab 15 Mg PO HS Methocarbamol 500 Mg Tab 500 Mg PO Q8HR Ultram (Tramadol HCl) 50 Mg Tab 100 Mg PO Q6HR PRN Reported Ativan (Lorazepam) 0.5 Mg Tab 0.5 Mg PO Q12HR PRN Past Surgical History none Reported Medications Reported Meds & Active Scripts Active Olanzapine 2.5 Mg Tab 2.5 Mg PO Q12HR Mirtazapine 15 Mg Tab 15 Mg PO HS Methocarbamol 500 Mg Tab 500 Mg PO Q8HR Ultram (Tramadol HCl) 50 Mg Tab 100 Mg PO Q6HR PRN Reported Ativan (Lorazepam) 0.5 Mg Tab 0.5 Mg PO Q12HR PRN Family History depression Social History Administrative duties, not . Physical Exam Vital Signs Vital Signs Date Time Temp Pulse Resp B/P Pulse Ox O2 Delivery O2 Flow Rate FiO2 05/05/16 06:10 97.9 84 18 118/76 99 05/04/16 19:33 98.5 71 16 115/66 95 Physical Exam Alert and oriented x 3 , face symmetric, speech fluent Motor 4/5 in the left triceps and left hand IO and opponens but 5/5 in the left deltoid, biceps and on the right delt/bic/tri/IO Sensation decreased in the left hand and forearm Abrasions on the left elbow from the fall, poor balance with walking. Reflexes are decreased but present in both biceps and triceps, no Ruiz sign, no Clonus, no Babinski Result Diagram: 05/04/16 0605 Imaging Last Impressions Cervical Spine MRI 05/04/16 0000 Signed Impressions: Service Date/Time: Wednesday, May 04, 2016 18:17 - CONCLUSION: 1. Degenerative disc disease. 2. Broad-based protrusion at C6-7 as above. Eliecer Mcdonald MD The cervical MRI shows an acute hypointense broad based disc herniation at C6/7 with no mass effect on the cord. The alignment is preserved. No fractures are evident. Assessment and Plan Diagnosis: (1) Cervical herniated disc Plan: Acute cervical disc herniation with weakness and numbness. She gets relief with robaxin and ultram. A medrol dose pack and physical therapy can also help. The herniation is small and will likely improve with conservative management. However she is welcome to follow up if the radicular problem persist. Allen Celaya May 05, 2016 18:26
[2016-05-05] MEDS: METHOCARBAMOL 500 MG TAB PO SCH (20:07)
[2016-05-05] MEDS ORDERED: QUEtiapine FUMARATE 100 MG TAB PO SCH (21:00)
[2016-05-06] MEDS: traMADol HCL 50 MG TAB PO PRN ×2 (03:52→15:14)
[2016-05-06 06:11] VITALS: BP 106/79; PULSE 91; RESP 16; TEMP 97.7
[2016-05-06] MEDS: ESCITALOPRAM OXALATE 20 MG TAB PO SCH (09:09)
[2016-05-06] MEDS: ACETAMINOPHEN 325 MG TAB PO PRN (09:12)
--- NOTE | 2016-05-06 10:46 | HHI.PYPN ---
Subjective Remarks Patient was seen and discussed with the public health staff nurse. Patient claimed that she has been complaining of more pain in her shoulder and that makes her feel bad. She has started physical therapy. She tends to isolate herself and withdraws from people. She has difficulty sleeping we will adjust the Seroquel at bedtime maybe. No side effects were complained. Patient was encouraged to participate in all the therapeutic activity on the floor. Patient denied any active suicidal ideation intentions. Continue the same treatment Review of Systems Except as stated in HPI: all other systems reviewed are Neg Psychiatric: COMPLAINS OF: Mood changes, Depression Objective Alert: Yes [place]: Person, Place, Situation Mood: Anxious, Depressed, Other (worried but could be reassured feels frustrated about her pain) Affect: Restricted Memory Intact: Recent (mildly impaired) Hallucinations: Other (patient denies any active auditory or visual hallucinations) Delusions: No Delusion Type: Other (no obvious delusional belief at this time) Suicidal: Ideation (denied any suicidal ideation intentions or plan feels safe in the hospital) Homicidal: Ideation (patient denies) Insight/Judgement Fair Remarks Attention and concentration improving. Gait normal. Language normal. Fund of knowledge average Vitals/IOs Vital Signs Date Time Temp Pulse Resp B/P Pulse Ox O2 Delivery O2 Flow Rate FiO2 05/06/16 06:11 97.7 91 16 106/79 05/05/16 18:26 94 Assessment & Plan Problem List: (1) Major depressive disorder, recurrent ICD Code: F33.9 Assessment & Plan Estimated LOS: days Justification for Cont. Inpt. Monitoring and adjustment of the medication and observe her to help lift her depression. Request HC Surrog/Guard Advoc?: No Problem Qualifiers (1) Major depressive disorder, recurrent: Qualified Code: F33.1 - Moderate episode of recurrent major depressive disorder Junior Mckeon MD May 06, 2016 10:46
[2016-05-06 19:09] VITALS: BP 110/74; PULSE 102; RESP 16; TEMP 97.9; O2SAT 96
[2016-05-06] MEDS: METHOCARBAMOL 500 MG TAB PO SCH (20:25)
[2016-05-06] MEDS: QUEtiapine FUMARATE 100 MG TAB PO SCH (20:25)
[2016-05-07 06:10] VITALS: BP 114/67; PULSE 68; RESP 18; TEMP 97.4
[2016-05-07] MEDS ORDERED: methylPREDNISolone 4 MG TAB PO ONE (08:00)
[2016-05-07] MEDS: ESCITALOPRAM OXALATE 20 MG TAB PO SCH (08:37)
[2016-05-07] MEDS: ACETAMINOPHEN 325 MG TAB PO PRN (09:10)
--- NOTE | 2016-05-07 10:36 | HHI.PYPN ---
Subjective Remarks Patient was seen and discussed with the staff educator. Patient reported that she is somewhat concerned and worried she did not know about that she will not be able to return back to her home and there was an article in the newspaper. But she could be reassured. She has been feeling sad depressed more emotional. She was ambivalent regarding her thoughts of wanting to hurt herself. Patient denied any active auditory or visual hallucinations. No behavior or management problem reported. No side effects were complained. Continue with the same treatment social sciences professor to assist. Review of Systems Except as stated in HPI: all other systems reviewed are Neg Psychiatric: COMPLAINS OF: Anxiety, Mood changes, Depression Other Pain in her shoulder Objective Alert: Yes [place]: Person, Place, Situation Mood: Anxious, Depressed, Other (worried but could be reassured feels frustrated about her pain) Affect: Restricted Memory Intact: Recent (mildly impaired) Hallucinations: Other (patient denies any active auditory or visual hallucinations) Delusions: No Delusion Type: Other (no obvious delusional belief at this time) Suicidal: Ideation (denied any suicidal ideation intentions or plan feels safe in the hospital) Homicidal: Ideation (patient denies) Insight/Judgement Fair to limited Vitals/IOs Vital Signs Date Time Temp Pulse Resp B/P Pulse Ox O2 Delivery O2 Flow Rate FiO2 05/07/16 06:10 97.4 68 18 114/67 05/06/16 19:09 96 Assessment & Plan Problem List: (1) Major depressive disorder, recurrent ICD Code: F33.9 Assessment & Plan Estimated LOS: days Justification for Cont. Inpt. Monitoring other medication and to help lift her depression. Safety issues. Risk of decompensation Request HC Surrog/Guard Advoc?: No Problem Qualifiers (1) Major depressive disorder, recurrent: Qualified Code: F33.1 - Moderate episode of recurrent major depressive disorder Junior Mckeon MD May 07, 2016 10:36
[2016-05-07] MEDS: QUEtiapine FUMARATE 100 MG TAB PO SCH ×2 (11:00→20:51)
[2016-05-07] MEDS: traMADol HCL 50 MG TAB PO PRN (16:06)
[2016-05-07 19:29] VITALS: BP 128/72; PULSE 85; RESP 17; TEMP 98; O2SAT 95
[2016-05-07] MEDS: METHOCARBAMOL 500 MG TAB PO SCH (20:51)
[2016-05-07] MEDS: MAGNESIUM HYDROXIDE SUSP 30 ML CUP PO PRN (20:55)
[2016-05-08 05:11] VITALS: BP 104/60; PULSE 71; RESP 16; TEMP 97.8
[2016-05-08] MEDS ORDERED: methylPREDNISolone 4 MG TAB PO ONE (08:00)
[2016-05-08] MEDS: ESCITALOPRAM OXALATE 20 MG TAB PO SCH (08:51)
[2016-05-08] MEDS: QUEtiapine FUMARATE 100 MG TAB PO SCH ×2 (08:51→20:37)
[2016-05-08] MEDS: traMADol HCL 50 MG TAB PO PRN ×2 (10:36→20:38)
--- NOTE | 2016-05-08 15:46 | HHI.PYPN ---
Subjective Remarks Patient was seen and case discussed with nursing. Patient notices an improvement in mood. She is no longer has suicidal ideation intent or plan. She is sleeping well. Compliant with her medications. Objective Alert: Yes [place]: Person, Place, Situation Mood: Anxious, Depressed, Other (worried but could be reassured feels frustrated about her pain) Affect: Restricted Memory Intact: Recent (mildly impaired) Hallucinations: Other (patient denies any active auditory or visual hallucinations) Delusions: No Delusion Type: Other (no obvious delusional belief at this time) Suicidal: Ideation (denied any suicidal ideation intentions or plan feels safe in the hospital) Homicidal: Ideation (patient denies) Insight/Judgement Poor Vitals/IOs Vital Signs Date Time Temp Pulse Resp B/P Pulse Ox O2 Delivery O2 Flow Rate FiO2 05/08/16 05:11 97.8 71 16 104/60 05/07/16 19:29 95 Assessment & Plan Problem List: (1) Major depressive disorder, recurrent ICD Code: F33.9 Assessment & Plan Continue current treatment plan Justification for Cont. Inpt. Patient would decompensate in a less restrictive setting Request HC Surrog/Guard Advoc?: No Problem Qualifiers (1) Major depressive disorder, recurrent: Qualified Code: F33.1 - Moderate episode of recurrent major depressive disorder Ceferino Baig DO May 08, 2016 15:46
[2016-05-08 18:58] VITALS: BP 125/65; PULSE 77; RESP 16; O2SAT 98
[2016-05-08] MEDS: METHOCARBAMOL 500 MG TAB PO SCH (20:39)
[2016-05-08] MEDS: LORazepam 0.5 MG TAB PO PRN (21:46)
[2016-05-08] MEDS: ACETAMINOPHEN 325 MG TAB PO PRN (21:47)
[2016-05-09 05:29] VITALS: BP 114/67; PULSE 68; RESP 16; TEMP 96.9; O2SAT 99
[2016-05-09] MEDS: MAGNESIUM HYDROXIDE SUSP 30 ML CUP PO PRN (08:54)
[2016-05-09] MEDS: ESCITALOPRAM OXALATE 20 MG TAB PO SCH (08:54)
[2016-05-09] MEDS: traMADol HCL 50 MG TAB PO PRN ×2 (08:54→20:09)
[2016-05-09] MEDS: QUEtiapine FUMARATE 100 MG TAB PO SCH ×2 (08:54→20:18)
--- NOTE | 2016-05-09 15:02 | HHI.PYPN ---
Subjective Remarks Patient was seen and case discussed with nursing. Patient is pleasant and cooperative to exam. Complaining of constipation. Says she slept most of the day. Mood is more depressed. Low energy. Denies suicidal ideations thought or plan Objective Alert: Yes [place]: Person, Place, Situation Mood: Anxious, Depressed, Other (worried but could be reassured feels frustrated about her pain) Affect: Restricted Memory Intact: Recent (mildly impaired) Hallucinations: Other (patient denies any active auditory or visual hallucinations) Delusions: No Delusion Type: Other (no obvious delusional belief at this time) Suicidal: Ideation (denied any suicidal ideation intentions or plan feels safe in the hospital) Homicidal: Ideation (patient denies) Insight/Judgement Poor Vitals/IOs Vital Signs Date Time Temp Pulse Resp B/P Pulse Ox O2 Delivery O2 Flow Rate FiO2 05/09/16 05:29 96.9 68 16 114/67 99 Assessment & Plan Problem List: (1) Major depressive disorder, recurrent ICD Code: F33.9 Assessment & Plan Continue current treatment plan Justification for Cont. Inpt. Patient would decompensate in a less restrictive setting Request HC Surrog/Guard Advoc?: No Problem Qualifiers (1) Major depressive disorder, recurrent: Qualified Code: F33.1 - Moderate episode of recurrent major depressive disorder Ceferino Baig DO May 09, 2016 15:02
[2016-05-09] MEDS: ACETAMINOPHEN 325 MG TAB PO PRN (15:07)
[2016-05-09 18:40] VITALS: BP 104/60; PULSE 86; RESP 18; O2SAT 94
[2016-05-09] MEDS: METHOCARBAMOL 500 MG TAB PO SCH (20:18)
[2016-05-09] MEDS: DOCUSATE SODIUM 100 MG CAP PO SCH (20:18)
[2016-05-10 05:41] VITALS: BP 99/67; PULSE 83; RESP 18; TEMP 97.6; O2SAT 97
[2016-05-10] MEDS: ESCITALOPRAM OXALATE 20 MG TAB PO SCH (08:25)
[2016-05-10] MEDS: DOCUSATE SODIUM 100 MG CAP PO SCH ×2 (08:25→21:00)
[2016-05-10] MEDS: QUEtiapine FUMARATE 100 MG TAB PO SCH ×2 (08:27→21:00)
[2016-05-10] MEDS: traMADol HCL 50 MG TAB PO PRN ×2 (09:05→21:00)
--- NOTE | 2016-05-10 11:54 | HHI.PYPN ---
Subjective Remarks Patient was seen and case discussed with nursing. Patient remains depressed and blunted. Chief complaint today is shoulder pain she attributes her mood to that. Says she is looking forward to a discharge but has to make the arrangements with her weight inspector. Denies suicidal ideations thought or plan. Social with other patients. Behaving well on the unit Objective Alert: Yes [place]: Person, Place, Situation Mood: Anxious, Depressed, Other (worried but could be reassured feels frustrated about her pain) Affect: Restricted Memory Intact: Recent (mildly impaired) Hallucinations: Other (patient denies any active auditory or visual hallucinations) Delusions: No Delusion Type: Other (no obvious delusional belief at this time) Suicidal: Ideation (denied any suicidal ideation intentions or plan feels safe in the hospital) Homicidal: Ideation (patient denies) Insight/Judgement Poor Vitals/IOs Vital Signs Date Time Temp Pulse Resp B/P Pulse Ox O2 Delivery O2 Flow Rate FiO2 05/10/16 05:41 97.6 83 18 99/67 97 Assessment & Plan Problem List: (1) Major depressive disorder, recurrent ICD Code: F33.9 Assessment & Plan Continue current treatment plan Justification for Cont. Inpt. Patient will decompensate in a less restrictive setting Request HC Surrog/Guard Advoc?: No Problem Qualifiers (1) Major depressive disorder, recurrent: Qualified Code: F33.1 - Moderate episode of recurrent major depressive disorder Ceferino Baig DO May 10, 2016 11:53
[2016-05-10 19:07] VITALS: BP 99/64; PULSE 94; RESP 18; TEMP 98; O2SAT 97
[2016-05-10] MEDS: ACETAMINOPHEN 325 MG TAB PO PRN (21:00)
[2016-05-10] MEDS: METHOCARBAMOL 500 MG TAB PO SCH (21:00)
[2016-05-10] MEDS: LORazepam 0.5 MG TAB PO PRN (21:00)
[2016-05-11 05:47] VITALS: BP 106/67; RESP 16; TEMP 97.7
[2016-05-11] MEDS: DOCUSATE SODIUM 100 MG CAP PO SCH ×2 (09:42→20:10)
[2016-05-11] MEDS: traMADol HCL 50 MG TAB PO PRN ×2 (09:42→20:11)
[2016-05-11] MEDS: QUEtiapine FUMARATE 100 MG TAB PO SCH ×2 (09:43→21:27)
[2016-05-11] MEDS: ESCITALOPRAM OXALATE 20 MG TAB PO SCH (09:43)
--- NOTE | 2016-05-11 11:38 | HHI.PYPN ---
Subjective Remarks Patient was seen and discussed with the event staff member. Patient complains of left shoulder pain which frustrates her. She has not started her physical therapy she said. Will check with the nursing staff. No behavior or management problem reported. Patient denies any suicidal ideation intentions or plan. She has to look into another place to go to and she is going to talk to her case liner or healthcare social worker to assist her. No side effects were complained from the medication. Continue with the same treatment Review of Systems Except as stated in HPI: all other systems reviewed are Neg Musculoskeletal: COMPLAINS OF: Joint pain Psychiatric: COMPLAINS OF: Mood changes, Depression Objective Alert: Yes [place]: Person, Place, Situation Mood: Anxious, Depressed, Other (worried but could be reassured feels frustrated about her pain) Affect: Restricted Memory Intact: Recent (mildly impaired) Hallucinations: Other (patient denies any active auditory or visual hallucinations) Delusions: No Delusion Type: Other (no obvious delusional belief at this time) Suicidal: Ideation (denied any suicidal ideation intentions or plan feels safe in the hospital) Homicidal: Ideation (patient denies) Insight/Judgement Fair Remarks Language normal fund of knowledge average gait normal Vitals/IOs Vital Signs Date Time Temp Pulse Resp B/P Pulse Ox O2 Delivery O2 Flow Rate FiO2 05/11/16 05:47 97.7 16 106/67 05/10/16 19:07 94 97 Assessment & Plan Problem List: (1) Major depressive disorder, recurrent ICD Code: F33.9 Assessment & Plan Estimated LOS: days Justification for Cont. Inpt. Risk of decompensation and monitoring of the medication. resident services manager to assist in finding an appropriate place Request HC Surrog/Guard Advoc?: No Problem Qualifiers (1) Major depressive disorder, recurrent: Qualified Code: F33.1 - Moderate episode of recurrent major depressive disorder Junior Mckeon MD May 11, 2016 11:38
[2016-05-11 19:57] VITALS: BP 117/57; PULSE 91; RESP 18; TEMP 98.6
[2016-05-11] MEDS: METHOCARBAMOL 500 MG TAB PO SCH (20:10)
[2016-05-12 05:55] VITALS: BP 101/62; PULSE 76; RESP 18; TEMP 96.9; O2SAT 97
[2016-05-12] MEDS: DOCUSATE SODIUM 100 MG CAP PO SCH ×2 (09:28→20:44)
[2016-05-12] MEDS: QUEtiapine FUMARATE 100 MG TAB PO SCH (09:28)
[2016-05-12] MEDS: ESCITALOPRAM OXALATE 20 MG TAB PO SCH (09:28)
[2016-05-12] MEDS: traMADol HCL 50 MG TAB PO PRN ×2 (09:28→21:38)
--- NOTE | 2016-05-12 12:06 | HHI.PYPN ---
Subjective Remarks Patient was seen and discussed with the housekeeping staff. Patient reported that she has been feeling somewhat sad and depressed but otherwise trying to take one dated time. She also complains of left shoulder pain. Sleeping better. Patient denied any active suicidal ideation intentions or plan. No behavior or management problem reported. No side effects were complained from the medication. We will assess clinical social work aide to assist her in finding another place. Continue with the same treatment Review of Systems Except as stated in HPI: all other systems reviewed are Neg Psychiatric: COMPLAINS OF: Anxiety, Mood changes, Depression Objective Alert: Yes [place]: Person, Place, Situation Mood: Anxious, Depressed, Other (worried but could be reassured feels frustrated about her pain) Affect: Restricted Memory Intact: Recent (mildly impaired) Hallucinations: Other (patient denies any active auditory or visual hallucinations) Delusions: No Delusion Type: Other (no obvious delusional belief at this time) Suicidal: Ideation (denied any suicidal ideation intentions or plan feels safe in the hospital) Homicidal: Ideation (patient denies) Insight/Judgement Fair to limited Vitals/IOs Vital Signs Date Time Temp Pulse Resp B/P Pulse Ox O2 Delivery O2 Flow Rate FiO2 05/12/16 05:55 96.9 76 18 101/62 97 Assessment & Plan Problem List: (1) Major depressive disorder, recurrent ICD Code: F33.9 Assessment & Plan Estimated LOS: days Justification for Cont. Inpt. Adjustment of the medication monitoring of the medication to stabilize her mood. Request HC Surrog/Guard Advoc?: No Problem Qualifiers (1) Major depressive disorder, recurrent: Qualified Code: F33.1 - Moderate episode of recurrent major depressive disorder Junior Mckeon MD May 12, 2016 12:06
[2016-05-12] MEDS: buPROPion HCL 100 MG TAB PO SCH (12:15)
[2016-05-12 18:00] VITALS: BP 126/75; PULSE 83; RESP 18; TEMP 98.3; O2SAT 99
[2016-05-12] MEDS: QUEtiapine FUMARATE 300 MG TAB PO SCH (20:44)
[2016-05-12] MEDS: METHOCARBAMOL 500 MG TAB PO SCH (20:44)
[2016-05-13 06:13] VITALS: BP 106/70; PULSE 71; RESP 16; TEMP 97.7
[2016-05-13] MEDS: DOCUSATE SODIUM 100 MG CAP PO SCH ×2 (09:28→21:14)
[2016-05-13] MEDS: QUEtiapine FUMARATE 100 MG TAB PO SCH (09:28)
[2016-05-13] MEDS: traMADol HCL 50 MG TAB PO PRN ×2 (09:28→21:14)
[2016-05-13] MEDS: buPROPion HCL 100 MG TAB PO SCH (09:28)
[2016-05-13] MEDS: ESCITALOPRAM OXALATE 20 MG TAB PO SCH (09:28)
--- NOTE | 2016-05-13 10:59 | HHI.PYPN ---
Subjective Remarks Patient was seen and discussed with the staff genetic counselor. Patient complains of left shoulder pain and feels frustrated for not getting any relief. The last the LMD to take a look at her again and see if there is anything more can be done. Patient feels sad and depressed about having to move to another place. But the social science research assistant are trying to assist her. Patient denied any suicidal ideation intentions or plan. No behavior or management problem reported. No side effects were complained from the medication. Continue with the same treatment Review of Systems Except as stated in HPI: all other systems reviewed are Neg Psychiatric: COMPLAINS OF: Anxiety, Mood changes, Depression Objective Alert: Yes [place]: Person, Place, Situation Mood: Anxious, Depressed, Other (worried but could be reassured feels frustrated about her pain) Affect: Restricted Memory Intact: Recent (mildly impaired) Hallucinations: Other (patient denies any active auditory or visual hallucinations) Delusions: No Delusion Type: Other (no obvious delusional belief at this time) Suicidal: Ideation (denied any suicidal ideation intentions or plan feels safe in the hospital) Homicidal: Ideation (patient denies) Insight/Judgement Fair Remarks Attention and concentration improving. Gait normal. Language normal. Fund of knowledge average Vitals/IOs Vital Signs Date Time Temp Pulse Resp B/P Pulse Ox O2 Delivery O2 Flow Rate FiO2 05/13/16 06:13 97.7 71 16 106/70 05/12/16 18:00 99 Assessment & Plan Problem List: (1) Major depressive disorder, recurrent ICD Code: F33.9 Assessment & Plan Estimated LOS: days Justification for Cont. Inpt. Risk of decompensation and monitoring of the medication to lift her depression and stabilize her mood Request HC Surrog/Guard Advoc?: No Problem Qualifiers (1) Major depressive disorder, recurrent: Qualified Code: F33.1 - Moderate episode of recurrent major depressive disorder Junior Mckeon MD May 13, 2016 10:59
[2016-05-13 18:00] VITALS: BP 102/69; PULSE 102; RESP 16; TEMP 96.6; O2SAT 97
[2016-05-13] MEDS: QUEtiapine FUMARATE 300 MG TAB PO SCH (21:14)
[2016-05-13] MEDS: METHOCARBAMOL 500 MG TAB PO SCH (21:14)
[2016-05-13] MEDS: LORazepam 0.5 MG TAB PO PRN (21:57)
[2016-05-14 05:56] VITALS: BP 98/58; PULSE 71; RESP 16; TEMP 97.6
[2016-05-14] MEDS: QUEtiapine FUMARATE 100 MG TAB PO SCH (09:14)
[2016-05-14] MEDS: ESCITALOPRAM OXALATE 20 MG TAB PO SCH (09:14)
[2016-05-14] MEDS: buPROPion HCL 100 MG TAB PO SCH ×2 (09:14→20:42)
[2016-05-14] MEDS: DOCUSATE SODIUM 100 MG CAP PO SCH ×2 (09:14→20:42)
[2016-05-14] MEDS: traMADol HCL 50 MG TAB PO PRN ×2 (09:15→21:35)
--- NOTE | 2016-05-14 11:25 | HHI.PYPN ---
Subjective Remarks Patient was seen and discussed with the staff auditor. Patient complained about feeling mildly anxious and nervous but not as bad as before. She still has been feeling depressed and worried about her home and future but could be reassured. Patient denied any suicidal ideation intentions or plan. No behavior or management problem reported. Patient is compliant in taking medication no side effects were complained. Advised to continue with the same treatment social science professor to assist her Review of Systems Except as stated in HPI: all other systems reviewed are Neg Psychiatric: COMPLAINS OF: Anxiety, Mood changes, Depression Objective Alert: Yes [place]: Person, Place, Situation Mood: Anxious, Depressed, Other (worried but could be reassured feels frustrated about her pain) Affect: Restricted Memory Intact: Recent (mildly impaired) Hallucinations: Other (patient denies any active auditory or visual hallucinations) Delusions: No Delusion Type: Other (no obvious delusional belief at this time) Suicidal: Ideation (denied any suicidal ideation intentions or plan feels safe in the hospital) Homicidal: Ideation (patient denies) Insight/Judgement Fair Remarks Attention and concentration normal gait normal language normal fund of knowledge average Vitals/IOs Vital Signs Date Time Temp Pulse Resp B/P Pulse Ox O2 Delivery O2 Flow Rate FiO2 05/14/16 05:56 97.6 71 16 98/58 05/13/16 18:00 97 Intake and Output 05/13/16 05/13/16 05/14/16 08:00 16:00 00:00 Intake Total 240 ml Balance 240 ml Assessment & Plan Problem List: (1) Major depressive disorder, recurrent ICD Code: F33.9 Assessment & Plan Estimated LOS: days Justification for Cont. Inpt. Monitoring of the medication and risk of decompensation and safety Request HC Surrog/Guard Advoc?: No Problem Qualifiers (1) Major depressive disorder, recurrent: Qualified Code: F33.1 - Moderate episode of recurrent major depressive disorder Junior Mckeon MD May 14, 2016 11:25
[2016-05-14 18:48] VITALS: BP 109/61; PULSE 96; RESP 16; O2SAT 97
[2016-05-14] MEDS: QUEtiapine FUMARATE 300 MG TAB PO SCH (20:42)
[2016-05-14] MEDS: METHOCARBAMOL 500 MG TAB PO SCH (20:42)
[2016-05-15 05:41] VITALS: BP 99/60; PULSE 74; RESP 16; TEMP 97.7
[2016-05-15] MEDS: traMADol HCL 50 MG TAB PO PRN ×2 (08:35→21:11)
[2016-05-15] MEDS: DOCUSATE SODIUM 100 MG CAP PO SCH ×2 (08:35→20:40)
[2016-05-15] MEDS: ESCITALOPRAM OXALATE 20 MG TAB PO SCH (08:35)
[2016-05-15] MEDS: buPROPion HCL 100 MG TAB PO SCH ×2 (08:36→20:40)
[2016-05-15] MEDS: QUEtiapine FUMARATE 100 MG TAB PO SCH (08:36)
[2016-05-15] MEDS: ACETAMINOPHEN 325 MG TAB PO PRN (13:07)
--- NOTE | 2016-05-15 17:16 | HHI.PYPN ---
Subjective Remarks Pt seen and discussed with staff.Pt reports she remains depressed but mood is a little better today. She states that initially she felt agitated with wellbutrin but it has resolved and she is tolerating medications without side effects. She denies SI today. Self care is still poor, but she has been less seclusive on unit. Objective Alert: Yes [place]: Person, Place, Date, Situation Mood: Anxious, Depressed, Other (worried but could be reassured feels frustrated about her pain) Affect: Restricted Memory Intact: Recent (mildly impaired) Hallucinations: Other (patient denies any active auditory or visual hallucinations) Delusions: No Delusion Type: Other (no obvious delusional belief at this time) Suicidal: Ideation (denied any suicidal ideation intentions or plan feels safe in the hospital) Homicidal: Ideation (patient denies) Insight/Judgement poor Vitals/IOs Vital Signs Date Time Temp Pulse Resp B/P Pulse Ox O2 Delivery O2 Flow Rate FiO2 05/15/16 05:41 97.7 74 16 99/60 05/14/16 18:48 97 Assessment & Plan Problem List: (1) Major depressive disorder, recurrent ICD Code: F33.9 Assessment & Plan Pt improving. Continue current tx plan. Estimated LOS: days Justification for Cont. Inpt. medication titration, risk of decompensating at lower level of care. Request HC Surrog/Guard Advoc?: No Problem Qualifiers (1) Major depressive disorder, recurrent: Qualified Code: F33.1 - Moderate episode of recurrent major depressive disorder Kelly Valdez MD May 15, 2016 17:15
[2016-05-15] MEDS: METHOCARBAMOL 500 MG TAB PO SCH (20:40)
[2016-05-15] MEDS: QUEtiapine FUMARATE 300 MG TAB PO SCH (20:40)
[2016-05-15 21:56] VITALS: BP 110/64; PULSE 87; RESP 16; TEMP 97.7; O2SAT 93
[2016-05-16 05:30] VITALS: BP 105/57; PULSE 90; RESP 18; TEMP 97.9; O2SAT 98
[2016-05-16] MEDS: QUEtiapine FUMARATE 100 MG TAB PO SCH (08:40)
[2016-05-16] MEDS: DOCUSATE SODIUM 100 MG CAP PO SCH ×2 (08:40→20:14)
[2016-05-16] MEDS: ESCITALOPRAM OXALATE 20 MG TAB PO SCH (08:42)
[2016-05-16] MEDS: buPROPion HCL 100 MG TAB PO SCH ×2 (08:42→20:14)
[2016-05-16] MEDS: traMADol HCL 50 MG TAB PO PRN ×2 (08:42→20:16)
--- NOTE | 2016-05-16 18:28 | HHI.PYPN ---
Subjective Remarks Pt seen and discussed with staff. Pt reports that she is tolerating medications without side effects. She reports improved sleep last night. Anxiety decreased. She denies SI/HI. She has been processing grief over mother' s with RN today. Objective Alert: Yes [place]: Person, Place, Date, Situation Mood: Anxious, Depressed, Other (worried but could be reassured feels frustrated about her pain) Affect: Restricted Memory Intact: Recent (mildly impaired) Hallucinations: Other (patient denies any active auditory or visual hallucinations) Delusions: No Delusion Type: Other (no obvious delusional belief at this time) Suicidal: Ideation (denied any suicidal ideation intentions or plan feels safe in the hospital) Homicidal: Ideation (patient denies) Insight/Judgement poor Vitals/IOs Vital Signs Date Time Temp Pulse Resp B/P Pulse Ox O2 Delivery O2 Flow Rate FiO2 05/16/16 05:30 97.9 90 18 105/57 98 Assessment & Plan Problem List: (1) Major depressive disorder, recurrent ICD Code: F33.9 Assessment & Plan Continue current tx plan. Estimated LOS: days Justification for Cont. Inpt. risk of decompensation Request HC Surrog/Guard Advoc?: No Problem Qualifiers (1) Major depressive disorder, recurrent: Qualified Code: F33.1 - Moderate episode of recurrent major depressive disorder Kelly Valdez MD May 16, 2016 18:28
[2016-05-16] MEDS: METHOCARBAMOL 500 MG TAB PO SCH (20:14)
[2016-05-16] MEDS: QUEtiapine FUMARATE 300 MG TAB PO SCH (20:15)
[2016-05-16 21:01] VITALS: BP 100/65; PULSE 79; TEMP 97.4; O2SAT 98
[2016-05-17 05:20] VITALS: BP 99/60; PULSE 80; RESP 16; TEMP 98.1
[2016-05-17] MEDS: QUEtiapine FUMARATE 100 MG TAB PO SCH (08:36)
[2016-05-17] MEDS: buPROPion HCL 100 MG TAB PO SCH ×2 (08:36→20:12)
[2016-05-17] MEDS: ESCITALOPRAM OXALATE 20 MG TAB PO SCH (08:36)
[2016-05-17] MEDS: DOCUSATE SODIUM 100 MG CAP PO SCH ×2 (08:36→20:12)
[2016-05-17] MEDS: ACETAMINOPHEN 325 MG TAB PO PRN ×2 (09:14→15:51)
[2016-05-17] MEDS: traMADol HCL 50 MG TAB PO PRN ×2 (09:14→20:12)
--- NOTE | 2016-05-17 10:39 | HHI.PYPN ---
Subjective Remarks Patient was seen and discussed with the research staff member. Patient reported that she has been feeling somewhat tired and depressed and worried and scared has been having some trouble sleeping. But denied any suicidal ideation intentions or plan. Denied any auditory or visual hallucinations. No behavior or management problem reported. No side effects were complained. client services analyst are working with her to find an appropriate place. Continue with the same treatment Review of Systems Except as stated in HPI: all other systems reviewed are Neg Psychiatric: COMPLAINS OF: Mood changes, Depression, Delusions Objective Alert: Yes [place]: Person, Place, Date, Situation Mood: Anxious, Depressed, Other (worried but could be reassured feels frustrated about her pain) Affect: Restricted Memory Intact: Recent (mildly impaired) Hallucinations: Other (patient denies any active auditory or visual hallucinations) Delusions: No Delusion Type: Other (no obvious delusional belief at this time) Suicidal: Ideation (denied any suicidal ideation intentions or plan feels safe in the hospital) Homicidal: Ideation (patient denies) Insight/Judgement Fair to limited Vitals/IOs Vital Signs Date Time Temp Pulse Resp B/P Pulse Ox O2 Delivery O2 Flow Rate FiO2 05/17/16 05:20 98.1 80 16 99/60 05/16/16 21:01 98 Assessment & Plan Problem List: (1) Major depressive disorder, recurrent ICD Code: F33.9 Assessment & Plan Estimated LOS: days Justification for Cont. Inpt. Risk of decompensation lower level of care and monitoring of the medication Request HC Surrog/Guard Advoc?: No Problem Qualifiers (1) Major depressive disorder, recurrent: Qualified Code: F33.1 - Moderate episode of recurrent major depressive disorder Junior Mckeon MD May 17, 2016 10:39
[2016-05-17 19:00] VITALS: BP 104/51; PULSE 91; RESP 16; TEMP 99.7; O2SAT 98
[2016-05-17] MEDS: QUEtiapine FUMARATE 300 MG TAB PO SCH (20:12)
[2016-05-17] MEDS: METHOCARBAMOL 500 MG TAB PO SCH (20:12)
[2016-05-18 05:51] VITALS: BP 106/53; PULSE 81; RESP 16; TEMP 98.1
[2016-05-18] MEDS: buPROPion HCL 100 MG TAB PO SCH ×2 (08:49→20:41)
[2016-05-18] MEDS: DOCUSATE SODIUM 100 MG CAP PO SCH ×2 (08:49→20:41)
[2016-05-18] MEDS: QUEtiapine FUMARATE 100 MG TAB PO SCH (08:50)
[2016-05-18] MEDS: traMADol HCL 50 MG TAB PO PRN ×2 (08:50→20:41)
[2016-05-18] MEDS: ESCITALOPRAM OXALATE 20 MG TAB PO SCH (08:50)
--- NOTE | 2016-05-18 10:19 | HHI.PYPN ---
Subjective Remarks Patient was seen and discussed with the staff occupational therapist. Patient reported that she has been feeling somewhat concerned and worried about her home and belongings but she could be reassured. She denies any active suicidal ideation intentions or plan. But she is financially concern. services mgr to assist in trying to find an appropriate aftercare plan and placement. No behavior or management problem reported. No side effects were complained. Patient complains of some pain in her shoulder. Continue with the same treatment plan on discharging him maybe tomorrow Review of Systems Except as stated in HPI: all other systems reviewed are Neg Psychiatric: COMPLAINS OF: Mood changes, Depression Objective Alert: Yes [place]: Person, Place, Date, Situation Mood: Anxious, Depressed, Other (worried but could be reassured feels frustrated about her pain and finances) Affect: Restricted Memory Intact: Recent (mildly impaired) Hallucinations: Other (patient denies any active auditory or visual hallucinations) Delusions: No Delusion Type: Other (no obvious delusional belief at this time) Suicidal: Ideation (denied any suicidal ideation intentions or plan feels safe in the hospital) Homicidal: Ideation (patient denies) Insight/Judgement Fair to limited Vitals/IOs Vital Signs Date Time Temp Pulse Resp B/P Pulse Ox O2 Delivery O2 Flow Rate FiO2 05/18/16 05:51 98.1 81 16 106/53 05/17/16 19:00 98 Assessment & Plan Problem List: (1) Major depressive disorder, recurrent ICD Code: F33.9 Assessment & Plan Estimated LOS: days Justification for Cont. Inpt. Risk of decompensation and monitoring of the medication Request HC Surrog/Guard Advoc?: No Problem Qualifiers (1) Major depressive disorder, recurrent: Qualified Code: F33.1 - Moderate episode of recurrent major depressive disorder Junior Mckeon MD May 18, 2016 10:19
[2016-05-18] MEDS: ACETAMINOPHEN 325 MG TAB PO PRN (13:48)
[2016-05-18 18:30] VITALS: BP 108/65; PULSE 88; RESP 16; TEMP 97.6; O2SAT 97
[2016-05-18] MEDS: METHOCARBAMOL 500 MG TAB PO SCH (20:40)
[2016-05-18] MEDS: QUEtiapine FUMARATE 300 MG TAB PO SCH (20:41)
[2016-05-19 05:53] VITALS: BP 101/67; PULSE 93; RESP 18; TEMP 98.7; O2SAT 96
[2016-05-19] MEDS: buPROPion HCL 100 MG TAB PO SCH ×2 (08:27→20:32)
[2016-05-19] MEDS: QUEtiapine FUMARATE 100 MG TAB PO SCH (08:27)
[2016-05-19] MEDS: ESCITALOPRAM OXALATE 20 MG TAB PO SCH (08:27)
[2016-05-19] MEDS: DOCUSATE SODIUM 100 MG CAP PO SCH ×2 (08:27→20:32)
--- NOTE | 2016-05-19 11:02 | HHI.PYPN ---
Subjective Remarks Patient was seen and discussed with the staff services manager. Patient reported that she has been feeling much better than the day she came in. Feels hopeful about the future. Denied any suicidal ideation intentions or plan. Denied any auditory or visual hallucinations. No behavior or management problem reported. Plan on going home tomorrow and follow-up as an outpatient. We will assess social work nurse to assist her in aftercare and discharge planning Review of Systems Except as stated in HPI: all other systems reviewed are Neg Psychiatric: COMPLAINS OF: Mood changes, Depression Objective Alert: Yes [place]: Person, Place, Date, Situation Mood: Anxious, Depressed, Other (worried but could be reassured feels frustrated about her pain and finances) Affect: Restricted Memory Intact: Recent (mildly impaired) Hallucinations: Other (patient denies any active auditory or visual hallucinations) Delusions: No Delusion Type: Other (no obvious delusional belief at this time) Suicidal: Ideation (denied any suicidal ideation intentions or plan feels safe in the hospital) Homicidal: Ideation (patient denies) Insight/Judgement Fair Vitals/IOs Vital Signs Date Time Temp Pulse Resp B/P Pulse Ox O2 Delivery O2 Flow Rate FiO2 05/19/16 05:53 98.7 93 18 101/67 96 Assessment & Plan Problem List: (1) Major depressive disorder, recurrent ICD Code: F33.9 Assessment & Plan Estimated LOS: days Justification for Cont. Inpt. Monitoring of the medication Request HC Surrog/Guard Advoc?: No Problem Qualifiers (1) Major depressive disorder, recurrent: Qualified Code: F33.1 - Moderate episode of recurrent major depressive disorder Junior Mckeon MD May 19, 2016 11:02
[2016-05-19] MEDS: ACETAMINOPHEN 325 MG TAB PO PRN (13:54)
[2016-05-19 18:38] VITALS: BP 127/64; PULSE 86; RESP 18; TEMP 97.9; O2SAT 99
[2016-05-19] MEDS: METHOCARBAMOL 500 MG TAB PO SCH (20:32)
[2016-05-19] MEDS: QUEtiapine FUMARATE 300 MG TAB PO SCH (20:32)
[2016-05-19] MEDS: traMADol HCL 50 MG TAB PO PRN (20:33)
[2016-05-20 05:00] VITALS: BP 101/55; PULSE 81; RESP 17; TEMP 98.1; O2SAT 97
[2016-05-20] MEDS: traMADol HCL 50 MG TAB PO PRN ×2 (08:59→20:38)
[2016-05-20] MEDS: QUEtiapine FUMARATE 100 MG TAB PO SCH (08:59)
[2016-05-20] MEDS: buPROPion HCL 100 MG TAB PO SCH ×2 (08:59→20:23)
[2016-05-20] MEDS: ESCITALOPRAM OXALATE 20 MG TAB PO SCH (08:59)
[2016-05-20] MEDS: DOCUSATE SODIUM 100 MG CAP PO SCH ×2 (08:59→20:23)
--- NOTE | 2016-05-20 10:19 | HHI.DS ---
Psychiatry Discharge Summary Inpatient Psychiatric care?: Yes Advance Directive: No Reason Not Provided: Due to Patient Condition Mental Health AdvanceDirective: No Health Care Proxy: No Admission Admission Date May 03, 2016 at 11:00 Admission Diagnosis: (1) Major depressive disorder, recurrent ICD Code: F33.9 GAF Score: 45 Brief History This is a 50-year-old white single female who was admitted as a transfer from the medical floor once she was medically stable. She was hospitalized following an overdose for feeling depressed frustrated and wanting to end her life. She was [place] acted patient to go to they'll acid minor fan wanting not to wake up she also took Benadryl and aspirin. Patient claimed that about 2 months ago her mother patient was very close to her mother. And wants to be with her. Patient claimed that in the past she used to see a psychiatrist and a counselor. And was taking Lexapro and Xanax but she was not able to because of her insurance and then stopped taking it and started to feel more depressed. Patient was living in a place that she which was not clean she is it was full of cats and dog feces patient wasn't taking good care of herself. Patient complains of having poor appetite not eating properly. Sleeping no more than 2 hours per night not taking care of herself feeling of sadness emptiness and thinking about suicide daily and meeting her mother who 2 months ago. Patient denies any symptoms of deondre or any active auditory or visual hallucinations patient also denied any use of alcohol or illegal illicit drugs. Patient is willing to sign voluntary and cooperative the treatment and feels safe in the hospital and denied any suicidal ideation intentions or plan Tobacco Use In Past 30 Days: 5 or More Cigarettes/Day Alcohol Use: Monthly or Less Hospital Course Patient was started on supportive treatment. She persevered in all the therapeutic activity on the floor. Her medication was adjusted. She started to feel better. guest services director assisted her in aftercare and discharge planning. Patient was not suicidal and/or homicidal. Denied any auditory or visual hallucinations. Willing to follow-up as an outpatient at that point arrangements were made for her to be discharged Results Blood Pressure 101 / 55 Vital Signs Date Time Temp Pulse Resp B/P Pulse Ox O2 Delivery O2 Flow Rate FiO2 05/20/16 05:00 98.1 81 17 101/55 97 Please see EMR Summary of Major Lab Results Nothing significant Summary of Procedures None Imaging Last Impressions Cervical Spine MRI 05/04/16 0000 Signed Impressions: Service Date/Time: Wednesday, May 04, 2016 18:17 - CONCLUSION: 1. Degenerative disc disease. 2. Broad-based protrusion at C6-7 as above. Eliecer Mcdonald MD Pending results at discharge: No Medications # of Antipsychotic meds at D/C: 1 Appropriate >1 Antipsych meds?: 2 Approp Antipsych med options 1 - Minimum of three failed multiple trials of monotherapy. Discharge Discharge Date: May 20, 2016 Discharge Diagnosis: (1) Major depressive disorder, recurrent Diagnosis: Principal ICD Code: F33.9 Mental Status Exam at Disch Patient was alert oriented 3 cooperative. Casually dressed. She was mildly anxious about going but could be reassured she was worried about not being alert to find her purse. But psych social worker was assisting her. Her thoughts were organized. Denied any suicidal ideation intentions or plan. Denied any auditory or visual hallucinations. Willing to take the medication and follow- up as an outpatient Pt Condition on Discharge: Stable Discharge Disposition: Discharge Home Discharge Instructions Diet Instructions: As Tolerated, No Restrictions Activities you can perform: Regular-No Restrictions Scheduled Appointment: Russ Lovelace Act Discharge Time <= 30 minutes Discharge/Advance Care Plan Health Problems: (1) Major depressive disorder, recurrent Goals to promote your health * To prevent worsening of your condition and complications * To maintain your health at the optimal level Directions to meet your goals Take your medications as prescribed Follow your dietary instruction Follow activity as directed Keep your appointments as scheduled Take your immunizations and boosters as scheduled If your symptoms worsen call your PCP, if no PCP go to Urgent Care Center or Emergency Room For 15/11 questions related to your inpatient stay or results of tests pending at discharge, please contact Dr. Junior Mckeon at Smoking is Dangerous to Your Health. Avoid second hand smoking Problem Qualifiers (1) Major depressive disorder, recurrent: Qualified Code: F33.1 - Moderate episode of recurrent major depressive disorder Junior Mckeon MD May 20, 2016 10:19
[2016-05-20] MEDS ORDERED: ESCI20TA PO (10:51)
[2016-05-20] MEDS ORDERED: QUET1TAB8 PO (10:51)
[2016-05-20] MEDS ORDERED: QUET1TAB10 PO (10:51)
[2016-05-20] MEDS ORDERED: BUPR100T4 PO (10:51)
[2016-05-20] MEDS: ACETAMINOPHEN 325 MG TAB PO PRN (15:49)
[2016-05-20 18:17] VITALS: BP 124/56; PULSE 80; RESP 16; TEMP 98.1; O2SAT 80
[2016-05-20] MEDS: QUEtiapine FUMARATE 300 MG TAB PO SCH (20:23)
[2016-05-20] MEDS: METHOCARBAMOL 500 MG TAB PO SCH (20:23)
[2016-05-21 05:05] VITALS: BP 98/60; PULSE 70; RESP 16; TEMP 97.9
[2016-05-21] MEDS: DOCUSATE SODIUM 100 MG CAP PO SCH (08:58)
[2016-05-21] MEDS: ESCITALOPRAM OXALATE 20 MG TAB PO SCH (08:59)
[2016-05-21] MEDS: buPROPion HCL 100 MG TAB PO SCH (08:59)
[2016-05-21] MEDS: QUEtiapine FUMARATE 100 MG TAB PO SCH (08:59)
[2016-05-21] MEDS: traMADol HCL 50 MG TAB PO PRN (10:13)
--- NOTE | 2016-05-21 10:22 | HHI.PYPN ---
Subjective Remarks Patient was seen and discussed with the staff sonographer. Yesterday patient could not be discharged because that she could not talk to her landlord who is going to see her and let her in her apartment today. Patient feels hopeful about the future. She is somewhat concerned and worried about not finding her purse or other paper and credit card. But she could be reassured no behavior or management problem reported. Patient denied any suicidal ideation intentions or plan. Patient is willing to follow-up as an outpatient and take the medication. Feels hopeful about the future. And will be discharged today Review of Systems Except as stated in HPI: all other systems reviewed are Neg Psychiatric: COMPLAINS OF: Mood changes, Depression Objective Alert: Yes [place]: Person, Place, Date, Situation Mood: Anxious, Depressed, Other (patient feels hopeful about the future) Affect: Restricted Memory Intact: Recent (mildly impaired) Hallucinations: Other (patient denies any active auditory or visual hallucinations) Delusions: No Delusion Type: Other (no obvious delusional belief at this time) Suicidal: Ideation (denied any suicidal ideation intentions or plan) Homicidal: Ideation (patient denies) Insight/Judgement Fair Vitals/IOs Vital Signs Date Time Temp Pulse Resp B/P Pulse Ox O2 Delivery O2 Flow Rate FiO2 05/21/16 05:05 97.9 70 16 98/60 05/20/16 18:17 80 Assessment & Plan Problem List: (1) Major depressive disorder, recurrent ICD Code: F33.9 Assessment & Plan Estimated LOS: days Justification for Cont. Inpt. Patient will be discharged today Request HC Surrog/Guard Advoc?: No Problem Qualifiers (1) Major depressive disorder, recurrent: Qualified Code: F33.1 - Moderate episode of recurrent major depressive disorder Junior Mckeon MD May 21, 2016 10:22
== END 2016-05-21 13:55 | disposition home or self-care (01) | DRG 885 ==
LOC: H260 11:00
PROVIDERS: ADMIT Psychiatry & Neurology Psychiatry; ATTEND Psychiatry & Neurology Psychiatry
DX: F33.9 Major depressive disorder, recurrent, unspecified (principal); J18.9 Pneumonia, unspecified organism; F17.210 Nicotine dependence, cigarettes, uncomplicated; M50.10 Cervical disc disorder with radiculopathy, unspecified cervical region
CPT/HCPCS: 72141; 80048; 80061; 83036; J7509

== ENCOUNTER 2017-04-25 13:18 | Emergency (ER) | payer SELFPAY ==
[~2017-04-25] VITALS: Ht 154.9 cm; Wt 61.0 kg
[~2017-04-25 13:18] MED LIST changes: +BUPR100T4 PO; +ESCI20TA PO; -OLAN2.5T PO; +OLAN2.5T7 PO; +QUET1TAB10 PO; +QUET1TAB8 PO; +TRAM50 PO; -ULTR50TA5 PO
[2017-04-25 13:25] VITALS: BP 156/85; PULSE 81; RESP 16; TEMP 98; O2SAT 100
--- NOTE | 2017-04-25 14:56 | PD ---
HPI Chief Complaint: Cold / Flu Symptoms Time Seen by Provider: 14:51 Travel History International Travel<30 days: No Contact w/Intl Traveler<30days: No Traveled to known affect area: No History of Present Illness HPI 51-year-old female here with nasal congestion, cough, body aches, subjective fever 3 days. Symptom severity is mild. Symptoms are slightly relieved with [id number] cough and cold medicine. No sick contacts at home. No foreign travel. PFSH Past Medical History Asthma: Yes Anxiety: Yes Depression: Yes (major ) Cancer: No Cardiovascular Problems: No Endocrine: No Gastrointestinal Disorders: Yes (COLONOSCOPIES: LAST ONE 2006, POLYPECTOMY) Genitourinary: Yes Hiatal Hernia: Yes Herniated Disk: Yes (NECK) Immune Disorder: No Kidney Stones: Yes Musculoskeletal: Yes Neurologic: No Psychiatric: Yes Reproductive: No Respiratory: Yes (BRONCHITIS, PNEUMONIA) Pneumonia: Yes Ulcer: Yes (GASTRIC) Tetanus Vaccination: < 5 Years Influenza Vaccination: Yes ?: Not Menopausal: Yes : 1 Miscarriage: 1 Past Surgical History Other Surgery: Yes (BREAST AUGMENTATION) Social History Alcohol Use: Yes (RARELY) Tobacco Use: Yes (04/26- PPD) Substance Use: No Allergies-Medications (Allergen,Severity, Reaction): Coded Allergies: Sulfa (Sulfonamide Antibiotics) (Unverified Allergy, Severe, HIGH FEVER AND RASH, 04/25/17) sulfamethoxazole (Unverified Allergy, Intermediate, RASH/FEVER, 04/25/17) trimethoprim (Unverified Allergy, Unknown, 04/25/17) Reported Meds & Prescriptions Reported Meds & Active Scripts Active No Active Prescriptions or Reported Medications Review of Systems Except as stated in HPI: all other systems reviewed are Neg General / Constitutional: No: Fever Eyes: No: Visual changes HENT: Positive: Congestion, No: Headaches Respiratory: Positive: Cough Gastrointestinal: No: Abdominal Pain Genitourinary: No: Dysuria Physical Exam Narrative GENERAL: Alert well-appearing female. No distress. SKIN: Warm and dry. HEAD: Normocephalic. EYES:No injection or drainage. THROAT: Mild pharyngeal erythema, no tonsillar hypertrophy or exudate. NECK: Supple, trachea midline. No JVD or lymphadenopathy. CARDIOVASCULAR: Regular rate and rhythm without murmurs, gallops, or rubs. RESPIRATORY: Breath sounds equal bilaterally. No accessory muscle use. Data Data Last Documented VS Vital Signs Date Time Temp Pulse Resp B/P (MAP) Pulse Ox O2 Delivery O2 Flow Rate FiO2 04/25/17 13:56 100 Room Air 04/25/17 13:25 98.0 81 16 156/85 (108) [facility] Medical Decision Making Medical Screen Exam Complete: Yes Emergency Medical Condition: Yes Differential Diagnosis URI, influenza, bronchitis Narrative Course 51-year-old female here with mild URI-like symptoms. She is nontoxic appearing. Her vital signs are stable. Symptomatically treatment discussed with patient. Diagnosis Primary Impression: URI (upper respiratory infection) Qualified Codes: J06.9 - Acute upper respiratory infection, unspecified; B97.89 - Other viral agents as the cause of diseases classified elsewhere Referrals: Primary Care Physician Departure Forms: Tests/Procedures, Work Release Enter return to work date: Apr 26, 2017 Additional Instructions: [id number] Tylenol and ibuprofen as needed for pain and fever. Stay well hydrated. Take [id number] cough: Medicine as needed for symptoms. Scripts No Active Prescriptions or Reported Meds Disposition: 01 DISCHARGE HOME Condition: Stable Marita Aviles Apr 25, 2017 14:56
== END 2017-04-25 15:16 | disposition home or self-care (01) ==
LOC: PHED 13:18
DX: J06.9 Acute upper respiratory infection, unspecified (principal); R05 Cough; M79.1 Myalgia; R50.9 Fever, unspecified; B97.89 Other viral agents as the cause of diseases classified elsewhere; F17.200 Nicotine dependence, unspecified, uncomplicated; Z87.09 Personal history of other diseases of the respiratory system; Z86.59 Personal history of other mental and behavioral disorders; Z87.19 Personal history of other diseases of the digestive system; Z87.39 Personal history of other diseases of the musculoskeletal system and connective tissue
CPT/HCPCS: 99282